=== PATIENT | female | born 1935 | race Caucasian/White ===

== ENCOUNTER 2016-11-14 08:00 | Outpatient (CLI) | payer MEDICARE, OTHER | END 2016-11-14 08:01 | DX: R30.0 Dysuria (principal); R31.9 Hematuria, unspecified ==

== ENCOUNTER 2016-11-21 13:24 | Outpatient (CLI) | payer MEDICARE, OTHER | END 2016-11-21 13:25 | disposition home or self-care (01) | DX: R30.0 Dysuria (principal) ==

== ENCOUNTER 2017-01-07 20:42 | Emergency (ER) | payer MEDICARE, OTHER ==
[2017-01-07 21:50] LABS: BILIRUBIN,URINE NEGATIVE (NEGATIVE); PH,URINE 5.5 PH (5.0-7.5)
[2017-01-07] MEDS ORDERED: LIDOCAINE VISCOUS 2% 15 ML UDC MM STA (21:55)
[2017-01-07] MEDS ORDERED: MAG HYDROX/AL HYDROX/SIMETH 30 ML UDC PO STA (21:55)
[2017-01-07] MEDS ORDERED: FAMOTIDINE 20 MG/2 ML VIAL IVP STA (21:55)
[2017-01-07 21:56] LABS: UA CHARGE (STRIP ONLY) YES; UR CULTURE IF IND NOT INDICATED
[2017-01-07] MEDS ORDERED: LIDOCAINE VISCOUS 2% 15 ML UDC MM ONE (22:09)
[2017-01-07] MEDS ORDERED: FAMOTIDINE 20 MG/2 ML VIAL ONE (22:09)
[2017-01-07] MEDS ORDERED: MAG HYDROX/AL HYDROX/SIMETH 30 ML UDC ONE (22:09)
[2017-01-07 22:20] LABS: BASOPHILS % (AUTO) 0.6 %; EOSINOPHILS # (AUTO) 0.1 10^3/uL (0.0-0.7); EOSINOPHILS % (AUTO) 1.5 %; HCT - HEMATOCRIT 39.9 % (37.0-47.0); LYMPHOCYTES # (AUTO) 1.1 10^3/uL (1.5-3.5); LYMPHOCYTES % (AUTO) 22.5 %; MEAN CORPUSCULAR HEMOGLOBIN 29.9 pg (27.0-31.0); MEAN CORPUSCULAR HGB CONC 32.6 g/dL (32.0-36.0); MEAN CORPUSCULAR VOLUME 91.7 fL (81.0-99.0); MEAN PLATELET VOLUME 9.7 fL (7.9-10.8); MONOCYTES # (AUTO) 0.5 10^3/uL (0.0-1.0); MONOCYTES % (AUTO) 10.1 %; NEUTROPHILS # (AUTO) 3.3 10^3/uL (1.5-6.6); NEUTROPHILS % (AUTO) 65.3 %; RED BLOOD COUNT 4.35 10^6/uL (4.20-5.40); RED CELL DISTRIBUTION WIDTH 16.3 % (12.0-15.0); UNCORRECTED WHITE BLOOD COUNT 5.1 x10^3/uL; WHITE BLOOD COUNT 5.1 x10^3/uL (4.8-10.8)
[2017-01-07 22:31] LABS: ALBUMIN/GLOBULIN RATIO 1.8 (1.0-2.2); BILIRUBIN,TOTAL 0.4 mg/dL (0.2-1.0); CALCIUM 9.1 mg/dL (8.5-10.3); CREATININE 0.9 mg/dL (0.4-1.0); POTASSIUM 3.7 mmol/L (3.5-5.0); TOTAL PROTEIN 6.6 g/dL (6.7-8.2)
[2017-01-07] MEDS ORDERED: IOPAMIDOL-300 100 ML VIAL IVP ONE (23:40)
--- NOTE | 2017-01-08 00:04 | CT Preliminary Report ---
Exam: CT Abdomen/Pelvis W/ IMPRESSION: 1. Appendix is not seen. No definite evidence of appendicitis. 2. No bowel obstruction seen. 3. Nonobstructing 3 mm stone in the right kidney. 4. Status post cholecystectomy with common duct measuring 10 mm and pancreatic duct measuring 3.5 mm. No ductal obstruction is identified. [facility] SITE ID: [id number]
--- NOTE | 2017-01-08 00:06 | CT Report ---
EXAM: CT ABDOMEN AND PELVIS EXAM DATE: 01/07/2017 11:24 PM. CLINICAL HISTORY: Abdominal pain. COMPARISONS: Prior report, 08/02/2014. TECHNIQUE: Routine helical CT imaging was performed through the abdomen and pelvis. IV contrast: Ayaka onic. Enteric contrast: No. Reconstructions: Coronal and sagittal. In accordance with CT protocol optimization, one or more of the following dose reduction techniques w ere utilized for this exam: automated exposure control, adjustment of mA and/or KV based on patient s ize, or use of iterative reconstructive technique. FINDINGS: Lung Bases: Unremarkable. Liver: No focal lesion identified. Gallbladder/Bile Ducts: Status post cholecystectomy. Common duct measures up to 10 mm. Spleen: Normal. Pancreas: Dilated duct measuring up to 3.5 mm. Adrenal Glands: Normal. Kidneys: Nonobstructing 3 mm right renal stone. Small left renal cyst. No masses or hydronephrosis. Peritoneal Cavity/Bowel: No bowel obstruction seen. No diverticulitis. No free air or free fluid. No lymphadenopathy. Appendix is not well seen. No evidence of appendicitis. Pelvic Organs: The uterus is not seen. Visualized pelvic organs are otherwise unremarkable. Vasculature: Moderate atherosclerosis. No aortic aneurysm. Bones: Scoliosis and degenerative changes in the spine. Grade 1 degenerative spondylolisthesis at L4- L5. 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 Other: None. IMPRESSION: 1. Appendix is not seen. No definite evidence of appendicitis. 2. No bowel obstruction seen. 3. Nonobstructing 3 mm stone in the right kidney. 4. Status post cholecystectomy with common duct measuring 10 mm and pancreatic duct measuring 3.5 mm. No ductal obstruction is identified. [facility] Referring Provider Line: [phone] SITE ID: [id number]
--- NOTE | 2017-01-08 00:16 | ED Physician Documentation ---
PD HPI ABD PAIN - Stated complaint Stated Complaint: ABD PX - Chief complaint Chief Complaint: Abd Pain - History obtained from History obtained from: Patient, Family - History of Present Illness Timing - onset: Yesterday Timing - details: Gradual onset, Still present Quality: Sharp Location: Epigastric Improved by: Eating, Laying still Associated symptoms: No: Fever, Nausea, Vomiting, Hematemesis, Diarrhea, Constipation, Near syncope / syncope, Loss of appetite Similar symptoms before: Work up / diagnostics, Treatment Recently seen: Not recently seen - Additional information Additional information: Patient is an 81 year old female presenting to the emergency department for epigastric pain. patient states that it has been going on for the last couple of days. it radiates to her back and feels like it is burning in nature. patient states that it improves with eating. Patient states that in the past she has been diagnosed with gastritis and has had an ulcer in the past. Review of Systems Constitutional: denies: Fever, Chills Eyes: denies: Loss of vision Ears: denies: Ear pain Nose: denies: Rhinorrhea / runny nose, Congestion, Epistaxis Throat: denies: Sore throat Cardiac: denies: Chest pain / pressure, Palpitations Respiratory: denies: Cough, Wheezing GI: reports: Abdominal Pain, Nausea, Diarrhea. denies: Vomiting, Constipation : reports: Incontinent. 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 HEENT: Tonsil/Adenoidectomy - Present Medications Home Medications: Ambulatory Orders Medication Instructions Recorded Confirmed Multivitamin [Daily Multiple 1 tab PO DAILY 04/06/15 01/07/17 Vitamin] raNITIdine [Zantac] 150 mg PO DAILY #30 tablet 01/08/17 - Allergies Allergies/Adverse Reactions: Allergies Allergy/AdvReac Type Severity Reaction Status Date / Time aspirin Allergy Severe throat pain Verified 04/06/15 01:29 - Social History Does the pt smoke?: No Smoking Status: Never smoker Does the pt drink ETOH?: No Does the pt have substance abuse?: No - Immunizations Immunizations are current?: Yes - POLST Patient has POLST: No PD ED PE NORMAL - Vitals Vital signs reviewed: Yes - General General: Alert and oriented X 3, No acute distress, Well developed/nourished - HEENT HEENT: Atraumatic, PERRL - Neck Neck: Supple, no meningeal sign, No JVD - Cardiac Cardiac: RRR, No murmur - Respiratory Respiratory: No respiratory distress - Derm Derm: Normal color, Warm and dry, No rash - Extremities Extremities: No deformity, No edema - Psych Psych: Normal mood, Normal affect PD ED PE EXPANDED - Abdomen Abdomen: Tender to palpation, Epigastric. No: Rebound, Guarding Results - Vitals Vitals: Vital Signs - 24 hr 01/07/17 01/07/17 01/08/17 20:47 22:46 00:29 Temperature 36.3 C L Heart Rate 70 96 65 Respiratory 18 18 18 Rate Blood Pressure 161/76 H 166/76 H 119/85 H O2 Saturation 99 96 97 Oxygen O2 Source Room air - Labs Labs: Laboratory Tests 01/07/17 01/07/17 01/07/17 21:38 22:08 22:08 WBC 5.1 RBC 4.35 Hgb 13.0 Hct 39.9 MCV 91.7 MCH 29.9 MCHC 32.6 RDW 16.3 H Plt Count 153 MPV 9.7 Neut # 3.3 Lymph # 1.1 L [place] # 0.5 Eos # 0.1 Baso # 0.0 Absolute Nucleated RBC 0.00 Nucleated RBCs 0.0 Sodium 140 Potassium 3.7 Chloride 107 Carbon Dioxide 24 Anion Gap 9.0 BUN 24 H Creatinine 0.9 Estimated GFR (MDRD) 60 L Glucose 117 H Lactic Acid Calcium 9.1 Total Bilirubin 0.4 AST 20 ALT 20 Alkaline Phosphatase 40 L Lactate Dehydrogenase Total Protein 6.6 L Albumin 4.2 Globulin 2.4 Albumin/Globulin Ratio 1.8 Lipase 33 Urine Color YELLOW Urine Clarity CLEAR Urine pH 5.5 Ur Specific [place] <=1.005 Urine Protein NEGATIVE Urine Glucose (UA) NEGATIVE Urine Ketones NEGATIVE Urine Occult Blood TRACE-INTA Urine Nitrite NEGATIVE Urine Bilirubin NEGATIVE Urine Urobilinogen 0.2 (NORMAL) Ur Leukocyte Esterase NEGATIVE Ur Microscopic Review NOT INDICATED Urine Culture Comments NOT INDICATED 01/07/17 01/07/17 22:08 22:08 WBC RBC Hgb Hct MCV MCH MCHC RDW Plt Count MPV Neut # Lymph # [place] # Eos # Baso # Absolute Nucleated RBC Nucleated RBCs Sodium Potassium Chloride Carbon Dioxide Anion Gap BUN Creatinine Estimated GFR (MDRD) Glucose Lactic Acid 0.7 Calcium Total Bilirubin AST ALT Alkaline Phosphatase Lactate Dehydrogenase 162 Total Protein Albumin Globulin Albumin/Globulin Ratio Lipase Urine Color Urine Clarity Urine pH Ur Specific [place] Urine Protein Urine Glucose (UA) Urine Ketones Urine Occult Blood Urine Nitrite Urine Bilirubin Urine Urobilinogen Ur Leukocyte Esterase Ur Microscopic Review Urine Culture Comments - Rads (name of study) ct abdomen and pelvis Radiology: Final report received (no obstruction) PD MEDICAL DECISION MAKING - ED course Complexity details: reviewed old records, reviewed results, re-evaluated patient , considered differential, d/w patient, d/w family ED course: Patient was seen and exained at bedside. patient was in no acute distress. labs were drawn and urine was collected. Patient was treated with viscous lidocaine, maalox, pepcid and was able to eat. patient stated that the treatment did help with her pain but it still persisted. CT was ordered. When patient returned from imaging the results were reviewed. there was no major intrabdominal abnormality. patient required no further work up and was stable for discharge with outpatient follow up. Departure - Departure Disposition: 01 Home, Self Care Clinical Impression: Abdominal pain Condition: Good Instructions: ED Abdominal Pain Unkn Cause Follow-Up: Za Matson PA-C [Primary Care Provider] - Tomorrow Prescriptions: raNITIdine [Zantac] 150 mg PO DAILY #30 tablet Comments: Your diagnostics today were within normal limits. there was no sign of infection, obstruction or fluid collection. While it is difficult to say what is causing the pain exactly, it is unlikely to be of serious etiology. You should follow up with your doctor tomorrow and the next step would possibly be endoscopy. You will be started on an antacid that you will need to take daily. You may return to the emergency department at any time for new, worsening or uncontrollable symptoms. Discharge Date/Time: 01/08/17 00:29
[2017-01-08 00:30] VITALS: BP 119/85
== END 2017-01-08 00:29 | disposition home or self-care (01) ==
LOC: ED 20:42
DX: R10.13 Epigastric pain (principal); R19.7 Diarrhea, unspecified; R11.0 Nausea
CPT/HCPCS: 36415; 74177; 80053; 81003; 83605; 83615; 83690; 85025; 96374; 99283; 99284; A9270; Q9967; 81001; 87086

== ENCOUNTER 2017-08-24 08:00 | Outpatient (CLI) | payer MEDICARE, OTHER ==
[2017-08-24 17:46] LABS: BASOPHILS # (AUTO) 0.1 10^3/uL (0.0-0.1); BASOPHILS % (AUTO) 1.9 %; EOSINOPHILS # (AUTO) 0.1 10^3/uL (0.0-0.7); EOSINOPHILS % (AUTO) 1.5 %; HGB - HEMOGLOBIN 13.5 g/dL (12.0-16.0); LYMPHOCYTES # (AUTO) 1.1 10^3/uL (1.5-3.5); LYMPHOCYTES % (AUTO) 15.3 %; MEAN CORPUSCULAR HEMOGLOBIN 29.3 pg (27.0-31.0); MEAN CORPUSCULAR HGB CONC 32.6 g/dL (32.0-36.0); MEAN CORPUSCULAR VOLUME 89.9 fL (81.0-99.0); MEAN PLATELET VOLUME 8.8 fL (7.9-10.8); MONOCYTES # (AUTO) 0.7 10^3/uL (0.0-1.0); MONOCYTES % (AUTO) 9.9 %; NEUTROPHILS # (AUTO) 5.3 10^3/uL (1.5-6.6); NEUTROPHILS % (AUTO) 71.4 %; PLT - PLATELET COUNT 253 10^3/uL (130-450); RED BLOOD COUNT 4.62 10^6/uL (4.20-5.40); RED CELL DISTRIBUTION WIDTH 15.1 % (12.0-15.0); WHITE BLOOD COUNT 7.5 x10^3/uL (4.8-10.8)
[2017-08-24 18:22] LABS: BILIRUBIN,URINE NEGATIVE (NEGATIVE); GLUCOSE, URINE (UA) NEGATIVE (NEGATIVE); KETONES,URINE (UA) NEGATIVE (NEGATIVE); LEUKOCYTE ESTERASE, URINE NEGATIVE (NEGATIVE); NITRITE,URINE NEGATIVE (NEGATIVE); OCCULT BLOOD,URINE NEGATIVE (NEGATIVE); PROTEIN,URINE NEGATIVE (NEGATIVE); UROBILINOGEN,URINE 0.2 (NORMAL) E.U./dL (NORMAL)
[2017-08-24 18:34] LABS: ALBUMIN 3.9 g/dL (3.2-5.5); ALBUMIN/GLOBULIN RATIO 1.4 (1.0-2.2); ALKALINE PHOSPHATASE 82 IU/L (42-121); ALT ALANINE AMINOTRANSFERASE 22 IU/L (10-60); AST ASPARTATE AMINOTRANSFERASE 18 IU/L (10-42); BILIRUBIN,TOTAL 0.5 mg/dL (0.2-1.0); BUN - BLOOD UREA NITROGEN 35 mg/dL (6-20); CARBON DIOXIDE - CO2 25 mmol/L (21-32); CHLORIDE 104 mmol/L (101-111); CREATININE 1.1 mg/dL (0.4-1.0); GFR - MDRD 48 (>89); GLUCOSE 90 mg/dL (70-100); SODIUM 138 mmol/L (135-145); TOTAL PROTEIN 6.6 g/dL (6.7-8.2)
[2017-08-24 18:40] LABS: CREATININE,URINE 83.1 mg/dL; MICROALBUM/CREATININE RATIO,UR 3.6 ug/mg (<30.0); MICROALBUMIN,URINE 0.3 mg/dL (0-300.0)
[2017-08-24 18:41] LABS: BACTERIA,URINE Rare /HPF (None Seen); CLARITY,URINE CLEAR (CLEAR); RBC,URINE 0-5 /HPF (0-5); SQUAMOUS EPITHELIAL CELL,UR FEW Squamous (<= Few)
[2017-08-24 18:54] LABS: HB2 TOTAL 14.5 g/dL; HEMOGLOBIN A1C 0.6 g/dL; HEMOGLOBIN A1C % 5.9 % (4.6-6.2)
== END 2017-08-24 08:01 | disposition home or self-care (01) ==
LOC: LAB.F 08:00
PROVIDERS: ATTEND Physician Assistant Medical
DX: N18.3 Chronic kidney disease, stage 3 (moderate) (principal); E11.22 Type 2 diabetes mellitus with diabetic chronic kidney disease; J06.9 Acute upper respiratory infection, unspecified; Z51.81 Encounter for therapeutic drug level monitoring
CPT/HCPCS: 36415; 80053; 81001; 82043; 82570; 83036; 84443; 85025; 87086

== ENCOUNTER 2017-12-23 08:00 | Outpatient (CLI) | payer MEDICARE, OTHER ==
[2017-12-23 17:42] LABS: BILIRUBIN,URINE NEGATIVE (NEGATIVE); GLUCOSE, URINE (UA) NEGATIVE (NEGATIVE); KETONES,URINE (UA) NEGATIVE (NEGATIVE); LEUKOCYTE ESTERASE, URINE NEGATIVE (NEGATIVE); NITRITE,URINE NEGATIVE (NEGATIVE); OCCULT BLOOD,URINE NEGATIVE (NEGATIVE); PROTEIN,URINE NEGATIVE (NEGATIVE); UROBILINOGEN,URINE 0.2 (NORMAL) E.U./dL (NORMAL)
[2017-12-23 17:48] LABS: CLARITY,URINE CLEAR (CLEAR)
[2017-12-23 17:58] LABS: BACTERIA,URINE None Seen /HPF (None Seen); RBC,URINE None Seen /HPF (0-5); SQUAMOUS EPITHELIAL CELL,UR RARE Squamous (<= Few)
== END 2017-12-23 08:01 | disposition home or self-care (01) ==
LOC: LAB.F 08:00
PROVIDERS: ATTEND Physician Assistant Medical
DX: R30.0 Dysuria (principal)
CPT/HCPCS: 81001; 87086

== ENCOUNTER 2018-01-22 14:49 | Outpatient (CLI) | payer MEDICARE, OTHER ==
[2018-01-22 18:32] LABS: THYROID STIMULATING HORMONE 0.8 uIU/mL (0.34-5.60)
[2018-01-22 18:39] LABS: FERRITIN 116.3 ng/mL (11.0-306.8)
== END 2018-01-22 14:50 | disposition home or self-care (01) ==
LOC: LAB.F 14:49
PROVIDERS: ATTEND Physician Assistant Medical
DX: R41.3 Other amnesia (principal); R63.4 Abnormal weight loss; R03.0 Elevated blood-pressure reading, without diagnosis of hypertension; N18.3 Chronic kidney disease, stage 3 (moderate)
CPT/HCPCS: 36415; 82607; 82728; 82746; 84439; 84443; 84481

== ENCOUNTER 2018-04-07 13:12 | Outpatient (CLI) | payer MEDICARE, OTHER ==
--- NOTE | 2018-04-07 15:44 | XRAY Report ---
Reason: ACUTE LOW BACK PAIN Procedure Date: 04/07/2018 Accession Number: [id number] / [id number] Procedure: XR - Hip w/Pelvis 2-3V LT CPT Code: FULL RESULT: EXAM: LEFT HIP AND PELVIS RADIOGRAPHY EXAM DATE: 04/07/2018 02:12 PM. HISTORY: Acute low back pain. COMPARISONS: 04/06/2015. TECHNIQUE: 1 view of the pelvis and 1 view of the hip. FINDINGS: Bones: Normal. No fracture or bone lesion. 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 Sacroiliac joints are congruent. Soft Tissues: Normal. No soft tissue swelling. IMPRESSION: Moderate degenerative disease of both hips. [facility]
--- NOTE | 2018-04-07 15:44 | XRAY Report ---
Reason: ACUTE LOW BACK PAIN Procedure Date: 04/07/2018 Accession Number: [id number] / [id number] Procedure: XR - Lumbar Spine 2 View CPT Code: FULL RESULT: EXAM: LUMBOSACRAL SPINE RADIOGRAPHY. EXAM DATE: 04/07/2018 02:12 PM. CLINICAL HISTORY: Acute low back pain. COMPARISONS: CT abdomen and pelvis 01/07/2017. TECHNIQUE: 3 views. FINDINGS: Alignment: Dextroconvex lumbar scoliosis centered about L1-L2, unchanged. Bones: 6 paw-aeb-lddzqos lumbar vertebral bodies are present with a vestigial left-sided riblet on L1. No fractures or bone lesions. Disks: Mild to moderate degenerative disk disease which is most pronounced at L3-L5. Facets: Severe facet arthropathy of the lower 4 lumbar vertebral bodies. Sacroiliac Joints: Unremarkable. Soft Tissues: Normal. The visualized bowel gas pattern is normal. IMPRESSION: Six lumbar vertebral bodies with dextroconvex scoliosis and associated degenerative changes. [facility]
== END 2018-04-07 13:13 | disposition home or self-care (01) ==
LOC: DI 13:12
PROVIDERS: ATTEND Internal Medicine
DX: M54.5 Low back pain (principal)
CPT/HCPCS: 72100

== ENCOUNTER 2018-07-14 12:11 | Outpatient (CLI) | payer MEDICARE, OTHER ==
[2018-07-14 17:28] LABS: BILIRUBIN,URINE NEGATIVE (NEGATIVE); GLUCOSE, URINE (UA) NEGATIVE (NEGATIVE); KETONES,URINE (UA) NEGATIVE (NEGATIVE); LEUKOCYTE ESTERASE, URINE NEGATIVE (NEGATIVE); NITRITE,URINE NEGATIVE (NEGATIVE); OCCULT BLOOD,URINE NEGATIVE (NEGATIVE); PH,URINE 6.5 PH (5.0-7.5); PROTEIN,URINE NEGATIVE (NEGATIVE); UROBILINOGEN,URINE 0.2 (NORMAL) E.U./dL (NORMAL)
[2018-07-14 17:39] LABS: CLARITY,URINE CLEAR (CLEAR)
[2018-07-14 17:50] LABS: CALCIUM 9.2 mg/dL (8.5-10.3); CREATININE 0.7 mg/dL (0.4-1.0)
[2018-07-14 18:02] LABS: BACTERIA,URINE None Seen /HPF (None Seen); RBC,URINE None Seen /HPF (0-5); SQUAMOUS EPITHELIAL CELL,UR RARE Squamous (<= Few)
[2018-07-14 20:36] LABS: HB2 TOTAL 14.7 g/dL; HEMOGLOBIN A1C 0.59 g/dL; HEMOGLOBIN A1C % 5.8 % (4.6-6.2)
== END 2018-07-14 23:59 | disposition home or self-care (01) ==
LOC: LAB.F 12:11
PROVIDERS: ATTEND Physician Assistant Medical
DX: R30.0 Dysuria (principal); A60.00 Herpesviral infection of urogenital system, unspecified; E11.9 Type 2 diabetes mellitus without complications
CPT/HCPCS: 36415; 80048; 81001; 82043; 83036; 87086

== ENCOUNTER 2018-09-08 14:53 | Outpatient (CLI) | payer MEDICARE, OTHER ==
[2018-09-08 18:22] LABS: ALBUMIN 3.8 g/dL (3.2-5.5); ALBUMIN/GLOBULIN RATIO 1.6 (1.0-2.2); BILIRUBIN,TOTAL 0.5 mg/dL (0.2-1.0); CALCIUM 9.3 mg/dL (8.5-10.3); CREATININE 0.7 mg/dL (0.4-1.0); TOTAL PROTEIN 6.2 g/dL (6.7-8.2)
== END 2018-09-08 14:54 | disposition home or self-care (01) ==
LOC: LAB.F 14:53
PROVIDERS: ATTEND Physician Assistant Medical
DX: R10.13 Epigastric pain (principal)
CPT/HCPCS: 36415; 80053; 82150; 83690

== ENCOUNTER 2018-09-08 22:42 | Outpatient (CLI) | payer MEDICARE, OTHER ==
--- NOTE | 2018-09-09 00:52 | Ultrasound Report ---
Reason: EPIGASTRIC PAIN Procedure Date: 09/09/2018 Accession Number: [id number] / [id number] Procedure: US - Abdomen Limited CPT Code: FULL RESULT: EXAM: ABDOMEN ULTRASOUND LIMITED, RUQ EXAM DATE: 09/09/2018 12:05 AM. CLINICAL HISTORY: EPIGASTRIC PAIN. COMPARISON: 09/30/2010. TECHNIQUE: Real-time scanning was performed with static images obtained. FINDINGS: Liver: Possible subtle echogenic focus in the left lobe measuring 7 x 6 x 6 mm. Mildly heterogeneous echotexture. 13.4 cm. Main portal vein flow: Hepatopetal. Gallbladder: Surgically absent. Biliary System: CBD measures 9.8 mm. No obvious common duct stone identified. Other: Right kidney measures 8.9 cm. Mild hydronephrosis. Small nonshadowing echogenic focus in the cortex. Inferior vena cava is patent where seen. IMPRESSION: 1. Status post cholecystectomy with common duct measuring 9.8 mm, probably normal for age and postcholecystectomy. 2. Possible subcentimeter hemangioma in the left liver lobe. 3. Mild right hydronephrosis. Possible small nonshadowing nonobstructing stone in the kidney. [facility] The call report notification system was initiated by Dr. Garrett Boyce at 12:51 AM hrs on 09/09/2018. ADDENDUM: 09/09/18 02:02 The above findings were discussed with Dr. Ureña by Dr. Garrett Boyce at 02:02 AM hrs on 09/09/2018.
== END 2018-09-08 22:43 | disposition home or self-care (01) ==
LOC: DI 22:42
PROVIDERS: ATTEND Physician Assistant Medical
DX: N13.30 Unspecified hydronephrosis (principal); Z90.49 Acquired absence of other specified parts of digestive tract; R10.13 Epigastric pain
CPT/HCPCS: 36415; 76705; 80053; 82150; 83690

== ENCOUNTER 2018-10-22 12:43 | Outpatient (CLI) | payer MEDICARE, OTHER ==
[2018-10-22 18:10] LABS: BASOPHILS % (AUTO) 0.9 %; EOSINOPHILS # (AUTO) 0.1 10^3/uL (0.0-0.7); EOSINOPHILS % (AUTO) 1.6 %; HGB - HEMOGLOBIN 13.1 g/dL (12.0-16.0); LYMPHOCYTES # (AUTO) 0.8 10^3/uL (1.5-3.5); LYMPHOCYTES % (AUTO) 22.7 %; MEAN CORPUSCULAR HGB CONC 33.6 g/dL (32.0-36.0); MEAN CORPUSCULAR VOLUME 89.5 fL (81.0-99.0); MEAN PLATELET VOLUME 9.6 fL (7.9-10.8); MONOCYTES # (AUTO) 0.4 10^3/uL (0.0-1.0); MONOCYTES % (AUTO) 11.9 %; NEUTROPHILS # (AUTO) 2.2 10^3/uL (1.5-6.6); NEUTROPHILS % (AUTO) 62.9 %; PLT - PLATELET COUNT 158 10^3/uL (130-450); RED BLOOD COUNT 4.35 10^6/uL (4.20-5.40); RED CELL DISTRIBUTION WIDTH 14.6 % (12.0-15.0); WHITE BLOOD COUNT 3.5 x10^3/uL (4.8-10.8)
[2018-10-22 18:11] LABS: BILIRUBIN,URINE NEGATIVE (NEGATIVE); GLUCOSE, URINE (UA) NEGATIVE (NEGATIVE); KETONES,URINE (UA) NEGATIVE (NEGATIVE); LEUKOCYTE ESTERASE, URINE NEGATIVE (NEGATIVE); NITRITE,URINE NEGATIVE (NEGATIVE); OCCULT BLOOD,URINE NEGATIVE (NEGATIVE); PROTEIN,URINE NEGATIVE (NEGATIVE); UROBILINOGEN,URINE 0.2 (NORMAL) E.U./dL (NORMAL)
[2018-10-22 18:15] LABS: CLARITY,URINE CLEAR (CLEAR)
[2018-10-22 18:31] LABS: ALBUMIN 3.9 g/dL (3.2-5.5); BACTERIA,URINE None Seen /HPF (None Seen); CALCIUM 9.5 mg/dL (8.5-10.3); CREATININE 0.7 mg/dL (0.4-1.0); MAGNESIUM 2.4 mg/dL (1.7-2.8); PHOSPHORUS 3.8 mg/dL (2.5-4.6); RBC,URINE None Seen /HPF (0-5); SQUAMOUS EPITHELIAL CELL,UR NONE SEEN (<= Few)
[2018-10-22 18:48] LABS: HB2 TOTAL 13.7 g/dL; HEMOGLOBIN A1C 0.58 g/dL
[2018-10-22 21:23] LABS: CREATININE,URINE 85.7 mg/dL; PROTEIN/CREATININE RATIO,URINE 0.1 (<=0.2)
== END 2018-10-22 12:44 | disposition home or self-care (01) ==
LOC: LAB.F 12:43
PROVIDERS: ATTEND Internal Medicine Nephrology
DX: E74.39 Other disorders of intestinal carbohydrate absorption (principal); N18.2 Chronic kidney disease, stage 2 (mild); D64.9 Anemia, unspecified
CPT/HCPCS: 36415; 80069; 81001; 81599; 82570; 83036; 83735; 83970; 84156; 85025

== ENCOUNTER 2018-12-05 11:44 | Outpatient (CLI) | payer MEDICARE, OTHER | END 2018-12-05 11:45 | disposition critical access hospital (66) | LOC: EMS 11:44 | PROVIDERS: ATTEND Surgery | DX: R20.2 Paresthesia of skin (principal); R20.0 Anesthesia of skin; R53.81 Other malaise | CPT/HCPCS: A0425; A0427 ==

== ENCOUNTER 2018-12-05 12:30 | Emergency (ER) | payer MEDICARE, OTHER ==
--- NOTE | 2018-12-05 13:22 | ED Physician Documentation ---
History of Present Illness - Stated complaint Stated Complaint: AFIB - Chief complaint Chief Complaint: UTI - History obtained from History obtained from: Patient, Family - History of Present Illness Timing: Today - Additonal information Additional information: 82-year-old female has had some intermittent symptoms over the past several weeks of vague left-sided tingling. Today she did not feel well and [facility] which [facility] right next to her home and they were able to capture atrial fibrillation with rate of 140. They transported the patient to the hospital and in route she went down to a rate of 90. She arrives to the emergency department in atrial fibrillation with a rate of 90. Review of Systems Constitutional: reports: Fatigue. denies: Fever, Chills, Myalgias Eyes: denies: Decreased vision Ears: denies: Ear pain Nose: denies: Rhinorrhea / runny nose, Congestion Throat: denies: Sore throat Cardiac: denies: Chest pain / pressure, Palpitations Respiratory: denies: Dyspnea, Cough GI: denies: Abdominal Pain, Nausea, Constipation, Diarrhea : denies: Dysuria, Frequency Skin: denies: Rash Musculoskeletal: reports: Other (odd sensations to the left side.). 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 HEENT: Tonsil/Adenoidectomy - Allergies Allergies/Adverse Reactions: Allergies Allergy/AdvReac Type Severity Reaction Status Date / Time aspirin Allergy Severe throat pain Verified 04/06/15 01:29 - Social History Does the pt smoke?: No Smoking Status: Never smoker Does the pt drink ETOH?: No Does the pt have substance abuse?: No - Immunizations Immunizations are current?: Yes - POLST Patient has POLST: No PD ED PE NORMAL - Vitals Vital signs reviewed: Yes (tachy and hypertensive ) - General General: Alert and oriented X 3, No acute distress, Well developed/nourished - HEENT HEENT: Atraumatic, PERRL, EOMI, Ears normal - Neck Neck: Supple, no meningeal sign, No bony TTP - Cardiac Cardiac: RRR, No murmur - Respiratory Respiratory: No respiratory distress, Clear bilaterally - Abdomen Abdomen: Soft, Non tender - Back Back: No CVA TTP, No spinal TTP - Derm Derm: Normal color, Warm and dry, No rash - Extremities Extremities: No deformity, No edema - Neuro Neuro: Alert and oriented X 3, 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, No motor deficit, No sensory deficit, Normal speech Eye Opening: Spontaneous Motor: Obeys Commands Verbal: Oriented GCS Score: 15 - Psych Psych: Normal mood, Normal affect Results - Vitals Vitals: Vital Signs - 24 hr 12/05/18 12/05/18 12/05/18 12:30 12:46 13:31 Temperature 36.8 C Heart Rate 115 H 76 Respiratory 18 18 Rate Blood Pressure 154/91 H 146/74 H Blood Pressure 154/91 H [Left] O2 Saturation 94 95 12/05/18 12/05/18 14:02 14:31 Temperature Heart Rate 70 71 Respiratory 16 12 Rate Blood Pressure 140/74 H 140/74 H Blood Pressure [Left] O2 Saturation 96 98 Oxygen O2 Source Room air - EKG (time done) 1240 Rate: Rate (enter#) (99) Rhythm: Atrial fibrillation Ischemia: Normal ST segments Compare to prior EKG: Old EKG unavailable Computer interpretation: Agree with computer 1334 Rate: Rate (enter#) (69) Rhythm: NSR, LISSETTE [place]: LAD Compare to prior EKG: Changed from prior EKG (SPT earlier today the rate has slowed and the rhythm has changed to sinus. ) Computer interpretation: Agree with computer - Labs Labs: Laboratory Tests 12/05/18 12/05/18 12/05/18 13:30 13:34 13:34 WBC 5.8 RBC 5.13 Hgb 14.9 Hct 45.8 MCV 89.2 MCH 29.0 MCHC 32.5 RDW 15.1 H Plt Count 167 MPV 9.6 Neut # (Auto) 3.9 Lymph # (Auto) 1.2 L [place] # (Auto) 0.6 Eos # (Auto) 0.1 Baso # (Auto) 0.0 Absolute Nucleated RBC 0.00 Nucleated RBC % 0.0 Sodium 139 Potassium 3.8 Chloride 103 Carbon Dioxide 26 Anion Gap 10.0 BUN 28 H Creatinine 0.8 Estimated GFR (MDRD) 69 L Glucose 108 H Calcium 9.7 Total Bilirubin 0.7 AST 21 ALT 18 Alkaline Phosphatase 54 Troponin I Total Protein 6.9 Albumin 4.0 Globulin 2.9 Albumin/Globulin Ratio 1.4 Lipase 37 Urine Color YELLOW Urine Clarity SL. CLOUDY Urine pH 8.0 H Ur Specific [place] 1.015 Urine Protein NEGATIVE Urine Glucose (UA) NEGATIVE Urine Ketones TRACE Urine Occult Blood NEGATIVE Urine Nitrite NEGATIVE Urine Bilirubin NEGATIVE Urine Urobilinogen 0.2 (NORMAL) Ur Leukocyte Esterase NEGATIVE Urine RBC 0-5 Urine WBC 0-3 Ur Squamous Epith Cells FEW Squamous Amorphous Sediment Few Urine Bacteria Few Ur Microscopic Review INDICATED Urine Culture Comments NOT INDICATED 12/05/18 13:34 WBC RBC Hgb Hct MCV MCH MCHC RDW Plt Count MPV Neut # (Auto) Lymph # (Auto) [place] # (Auto) Eos # (Auto) Baso # (Auto) Absolute Nucleated RBC Nucleated RBC % Sodium Potassium Chloride Carbon Dioxide Anion Gap BUN Creatinine Estimated GFR (MDRD) Glucose Calcium Total Bilirubin AST ALT Alkaline Phosphatase Troponin I < 0.04 Total Protein Albumin Globulin Albumin/Globulin Ratio Lipase Urine Color Urine Clarity Urine pH Ur Specific [place] Urine Protein Urine Glucose (UA) Urine Ketones Urine Occult Blood Urine Nitrite Urine Bilirubin Urine Urobilinogen Ur Leukocyte Esterase Urine RBC Urine WBC Ur Squamous Epith Cells Amorphous Sediment Urine Bacteria Ur Microscopic Review Urine Culture Comments - Rads (name of study) CT head without Radiology: Prelim report reviewed (Impression: 1. No definite acute intracranial abnormality. 2 Mild chronic atrophic and probable microvascular ischemic changes as noted above.), EMP read indepedently, See rad report PD MEDICAL DECISION MAKING - ED course Complexity details: considered differential, d/w patient, d/w family ED course: 82-year-old female presents to the emergency department with atrial fibrillation she was seen at the medics station noted to be in A. fib with a rate of 140 and she went down to a rate of 90 when they attempted to start her IV. On my initial evaluation the patient is in atrial fibrillation and when she sits up for examination of her lungs she converts into a sinus rhythm with rate of 72. She has some complaints of odd sensations in the left side she is very nondescript about this and unable to fully elaborate. She does indicate that she fell and hit her head hard about 2 and [address] weeks ago. A CT of the head is without evidence of bleed and she is released to home. The patient's symptoms are vague and I suspect she may be having symptoms of intermittent atrial fibrillation I have asked the patient to obtain a fit bit to wear for interrogation by her doctor in follow-up. Departure - Departure Disposition: Home, Self Care Clinical Impression: Atrial fibrillation Condition: Stable Instructions: ED Afib Follow-Up: Za Matson PA-C [Primary Care Provider] - Comments: Today it appears you are in atrial fibrillation and you have now converted back into a sinus rhythm. Your symptoms are concerning for intermittent atrial fibrillation and my recommendation is to obtain a fit bit and wear it regularly and bring it to your doctor for interrogation. Discharge Date/Time: 12/05/18 14:48
[2018-12-05 13:40] LABS: BILIRUBIN,URINE NEGATIVE (NEGATIVE); GLUCOSE, URINE (UA) NEGATIVE (NEGATIVE); KETONES,URINE (UA) TRACE mg/dL (NEGATIVE); LEUKOCYTE ESTERASE, URINE NEGATIVE (NEGATIVE); NITRITE,URINE NEGATIVE (NEGATIVE); OCCULT BLOOD,URINE NEGATIVE (NEGATIVE); PROTEIN,URINE NEGATIVE (NEGATIVE); UROBILINOGEN,URINE 0.2 (NORMAL) E.U./dL (NORMAL)
[2018-12-05 13:41] LABS: CLARITY,URINE SL. CLOUDY (CLEAR)
[2018-12-05 13:46] LABS: AMORPHOUS SEDIMENT,UR Few /LPF; BACTERIA,URINE Few /HPF (None Seen); RBC,URINE 0-5 /HPF (0-5); SQUAMOUS EPITHELIAL CELL,UR FEW Squamous (<= Few)
[2018-12-05 13:54] LABS: BASOPHILS % (AUTO) 0.8 %; EOSINOPHILS # (AUTO) 0.1 10^3/uL (0.0-0.7); EOSINOPHILS % (AUTO) 1.3 %; HGB - HEMOGLOBIN 14.9 g/dL (12.0-16.0); LYMPHOCYTES # (AUTO) 1.2 10^3/uL (1.5-3.5); LYMPHOCYTES % (AUTO) 21.1 %; MEAN CORPUSCULAR HGB CONC 32.5 g/dL (32.0-36.0); MEAN CORPUSCULAR VOLUME 89.2 fL (81.0-99.0); MEAN PLATELET VOLUME 9.6 fL (7.9-10.8); MONOCYTES # (AUTO) 0.6 10^3/uL (0.0-1.0); MONOCYTES % (AUTO) 9.6 %; NEUTROPHILS # (AUTO) 3.9 10^3/uL (1.5-6.6); NEUTROPHILS % (AUTO) 67.2 %; PLT - PLATELET COUNT 167 10^3/uL (130-450); RED BLOOD COUNT 5.13 10^6/uL (4.20-5.40); RED CELL DISTRIBUTION WIDTH 15.1 % (12.0-15.0); WHITE BLOOD COUNT 5.8 x10^3/uL (4.8-10.8)
[2018-12-05 14:03] VITALS: BP 140/74
[2018-12-05 14:08] LABS: ALBUMIN/GLOBULIN RATIO 1.4 (1.0-2.2); BILIRUBIN,TOTAL 0.7 mg/dL (0.2-1.0); CALCIUM 9.7 mg/dL (8.5-10.3); CREATININE 0.8 mg/dL (0.4-1.0); TOTAL PROTEIN 6.9 g/dL (6.7-8.2)
--- NOTE | 2018-12-05 14:10 | CT Report ---
Reason: head injury left sided symptoms Procedure Date: 12/05/2018 Accession Number: [id number] / [id number] Procedure: CT - HEAD WO CPT Code: FULL RESULT: EXAM: CT HEAD EXAM DATE: 12/05/2018 01:55 PM. CLINICAL HISTORY: Head injury left sided symptoms. COMPARISON: None. TECHNIQUE: Multiaxial CT images were obtained from the foramen magnum to the vertex. Reformats: Sagittal and coronal. IV contrast: None. In accordance with CT protocol optimization, one or more of the following dose reduction techniques were utilized for this exam: automated exposure control, adjustment of mA and/or KV based on patient size, or use of iterative reconstructive technique. FINDINGS: Parenchyma: No intraparenchymal hemorrhage. No evidence of mass, midline shift, or CT findings of infarction. Cam[place]-white differentiation is distinct. Mild patchy white matter hypodensity in the periventricular white matter and centrum semiovale suggesting chronic microvascular ischemic change. Extraaxial Spaces: Normal for age. No subdural or epidural collections identified. Ventricles: Normal in size and position accounting for mild generalized cerebral and cerebellar volume loss. Sinuses and Orbits: Imaged paranasal sinuses, orbits, and mastoids show no significant abnormality. Bones: No evidence of fracture or calvarial defect. Other: None. IMPRESSION: 1. No definite acute intracranial abnormality. 2. Mild chronic atrophic and probable microvascular ischemic changes as noted above. [facility]
== END 2018-12-05 14:48 | disposition home or self-care (01) ==
LOC: EDUNIT# → ED 12:30
DX: I48.91 Unspecified atrial fibrillation (principal)
CPT/HCPCS: 36415; 70450; 80053; 81001; 81003; 83690; 84484; 85025; 87086; 93005; 99284

== ENCOUNTER 2018-12-07 17:15 | Outpatient (CLI) | payer MEDICARE, OTHER | END 2018-12-07 17:16 | disposition short-term general hospital (02) | LOC: EMS 17:15 | PROVIDERS: ATTEND Surgery | DX: R20.0 Anesthesia of skin (principal); R53.1 Weakness; R53.83 Other fatigue | CPT/HCPCS: A0425; A0427 ==

== ENCOUNTER 2019-01-04 08:31 | Outpatient (CLI) | payer MEDICARE, OTHER ==
[2019-01-04 12:34] LABS: THYROID STIMULATING HORMONE 0.89 uIU/mL (0.34-5.60)
[2019-01-04 12:36] LABS: FREE T4 (FREE THYROXINE) 1.03 ng/dL (0.58-1.64)
== END 2019-01-04 08:32 | disposition home or self-care (01) ==
LOC: LAB.F 08:31
PROVIDERS: ATTEND Physician Assistant Medical
DX: R53.83 Other fatigue (principal); I48.91 Unspecified atrial fibrillation
CPT/HCPCS: 36415; 84439; 84443; 84481; 86376; 86800

== ENCOUNTER 2019-06-07 13:29 | Outpatient (CLI) | payer MEDICARE, OTHER ==
[2019-06-09 16:11] LABS: 18 KD (IGG) BAND NON-REACTIVE; 23 KD (IGG) BAND NON-REACTIVE; 23 KD (IGM) BLOT NON-REACTIVE; 28 KD (IGG) BAND NON-REACTIVE; 30 KD (IGG) BAND NON-REACTIVE; 39 KD (IGG) BAND NON-REACTIVE; 39 KD (IGM) BLOT NON-REACTIVE; 41 KD (IGG) BAND NON-REACTIVE; 41 KD (IGM) BLOT NON-REACTIVE; 45 KD (IGG) BAND NON-REACTIVE; 58 KD (IGG) BAND NON-REACTIVE; 66 KD (IGG) BAND NON-REACTIVE; 93 KD (IGG) BAND NON-REACTIVE
== END 2019-06-07 13:30 | disposition home or self-care (01) ==
LOC: LAB.S 13:29
PROVIDERS: ATTEND Physician Assistant Medical
DX: M25.50 Pain in unspecified joint (principal); R61 Generalized hyperhidrosis; R53.83 Other fatigue
CPT/HCPCS: 36415; 86617

== ENCOUNTER 2019-07-25 11:12 | Outpatient (CLI) | payer MEDICARE, OTHER ==
[2019-07-25 17:14] LABS: BASOPHILS % (AUTO) 0.6 %; EOSINOPHILS # (AUTO) 0.2 10^3/uL (0.0-0.7); EOSINOPHILS % (AUTO) 3.2 %; HGB - HEMOGLOBIN 12.9 g/dL (12.0-16.0); LYMPHOCYTES # (AUTO) 1.3 10^3/uL (1.5-3.5); LYMPHOCYTES % (AUTO) 26.9 %; MEAN CORPUSCULAR HEMOGLOBIN 30.1 pg (27.0-31.0); MEAN CORPUSCULAR HGB CONC 32.2 g/dL (32.0-36.0); MEAN CORPUSCULAR VOLUME 93.5 fL (81.0-99.0); MONOCYTES # (AUTO) 0.5 10^3/uL (0.0-1.0); MONOCYTES % (AUTO) 9.5 %; NEUTROPHILS # (AUTO) 2.8 10^3/uL (1.5-6.6); NEUTROPHILS % (AUTO) 59.4 %; PLT - PLATELET COUNT 172 10^3/uL (130-450); RED BLOOD COUNT 4.29 10^6/uL (4.20-5.40); RED CELL DISTRIBUTION WIDTH 16.1 % (12.0-15.0); WHITE BLOOD COUNT 4.7 x10^3/uL (4.8-10.8)
[2019-07-25 18:01] LABS: HB2 TOTAL 13.3 g/dL; HEMOGLOBIN A1C 0.6 g/dL; HEMOGLOBIN A1C % 6.3 % (4.6-6.2)
[2019-07-25 18:12] LABS: BUN - BLOOD UREA NITROGEN 31 mg/dL (6-20); CALCIUM 9.2 mg/dL (8.5-10.3); CARBON DIOXIDE - CO2 27 mmol/L (21-32); CHLORIDE 105 mmol/L (101-111); CHOL/HDL RATIO 2.1 (<4.4); CHOLESTEROL 190 mg/dL; CREATININE 0.8 mg/dL (0.4-1.0); GFR - MDRD 69 (>89); GLUCOSE 125 mg/dL (70-100); HDL CHOLESTEROL 89 mg/dL; MAGNESIUM 2.4 mg/dL (1.7-2.8); SODIUM 139 mmol/L (135-145)
[2019-07-25 18:16] LABS: THYROID STIMULATING HORMONE 1.15 uIU/mL (0.34-5.60)
== END 2019-07-25 11:13 | disposition home or self-care (01) ==
LOC: LAB.S 11:12
PROVIDERS: ATTEND Internal Medicine
DX: E11.9 Type 2 diabetes mellitus without complications (principal); R63.8 Other symptoms and signs concerning food and fluid intake; R53.83 Other fatigue
CPT/HCPCS: 36415; 80048; 80061; 81599; 82043; 82542; 82607; 83036; 83721; 83735; 84443; 85025

== ENCOUNTER 2019-08-12 10:29 | Outpatient (CLI) | payer MEDICARE, OTHER ==
[2019-08-13 13:27] LABS: HEPATITIS A IGM NON-REACTIVE (NON-REACTIVE); HEPATITIS B SURFACE ANTIGEN NON-REACTIVE (NON-REACTIVE); HEPATITIS C ANTIBODY NON-REACTIVE (NON-REACTIVE)
[2019-08-13 15:15] LABS: HEPATITIS C ANTIBODY NON-REACTIVE (NON-REACTIVE)
[2019-08-20 13:54] LABS: EBV VIRAL CAPSID AB VCA IGM <36.00 U/mL
== END 2019-08-12 10:30 | disposition home or self-care (01) ==
LOC: LAB.S 10:29
PROVIDERS: ATTEND Internal Medicine
DX: R53.83 Other fatigue (principal)
CPT/HCPCS: 36415; 80074; 81599; 83519; 85651; 86140; 86376; 86665; 86704; 86800; 86803

== ENCOUNTER 2019-09-30 11:06 | Outpatient (CLI) | payer MEDICARE, OTHER ==
--- NOTE | 2019-09-30 14:22 | XRAY Report ---
Reason: TROCHANTERIC BURSITIS Procedure Date: 09/30/2019 Accession Number: [id number] / [id number] Procedure: XR - Hips 2V BILAT CPT Code: Final Report FULL RESULT: EXAM: BILATERAL HIP RADIOGRAPHY EXAM DATE: 09/30/2019 12:09 PM. CLINICAL HISTORY: TROCHANTERIC BURSITIS. COMPARISON: HIP W/PELVIS 2-3V LT 04/07/2018 1:52 PM. TECHNIQUE: 2 views each. FINDINGS: Enthesophytes at the greater trochanters, iliac crests and spines, and ischial tuberosities. No acute fracture or bone lesions. Moderate bilateral hip joint space narrowing. Degenerative changes at the visualized lower lumbar spine. Degenerative changes at the pubic symphysis. Soft Tissues: Normal. No soft tissue swelling. IMPRESSION: 1. Moderate bilateral hip joint space narrowing. 2. Enthesopathy as described above. 3. Degenerative changes at the visualized lower lumbar spine and pubic symphysis. [facility]
--- NOTE | 2019-09-30 14:26 | XRAY Report ---
Reason: TROCHANTERIC BURSITIS Procedure Date: 09/30/2019 Accession Number: [id number] / [id number] Procedure: XR - Shoulder 3 View LT CPT Code: Final Report FULL RESULT: EXAM: LEFT SHOULDER RADIOGRAPHY EXAM DATE: 09/30/2019 12:08 PM. CLINICAL HISTORY: Left shoulder pain. COMPARISON: None. TECHNIQUE: 3 views. FINDINGS: The bones are osteopenic. No acute fracture or bone lesions. Mild to moderate AC joint and glenohumeral joint osteoarthritis. No joint subluxations. Soft tissues: Calcified plaques at the thoracic aorta. IMPRESSION: 1. Osteopenia. 2. Mild to moderate AC joint and glenohumeral joint osteoarthritis. [facility]
== END 2019-09-30 11:07 | disposition home or self-care (01) ==
LOC: DI 11:06
PROVIDERS: ATTEND Internal Medicine
DX: M19.012 Primary osteoarthritis, left shoulder (principal); M85.812 Other specified disorders of bone density and structure, left shoulder; M16.0 Bilateral primary osteoarthritis of hip; M76.892 Other specified enthesopathies of left lower limb, excluding foot; M76.891 Other specified enthesopathies of right lower limb, excluding foot; M47.816 Spondylosis without myelopathy or radiculopathy, lumbar region
CPT/HCPCS: 73521

== ENCOUNTER 2020-04-02 10:40 | Outpatient (CLI) | payer MEDICARE, OTHER | END 2020-04-02 10:41 | disposition short-term general hospital (02) | LOC: EMS 10:40 | PROVIDERS: ATTEND Surgery | DX: R31.9 Hematuria, unspecified (principal); R39.15 Urgency of urination | CPT/HCPCS: A0425; A0427 ==

== ENCOUNTER 2020-04-11 08:00 | Outpatient (CLI) | payer MEDICARE, OTHER ==
[2020-04-11 16:20] LABS: BILIRUBIN,URINE NEGATIVE (NEGATIVE); GLUCOSE, URINE (UA) NEGATIVE (NEGATIVE); KETONES,URINE (UA) NEGATIVE (NEGATIVE); LEUKOCYTE ESTERASE, URINE NEGATIVE (NEGATIVE); NITRITE,URINE NEGATIVE (NEGATIVE); OCCULT BLOOD,URINE NEGATIVE (NEGATIVE); PH,URINE 7.5 PH (5.0-7.5); PROTEIN,URINE NEGATIVE (NEGATIVE); UROBILINOGEN,URINE 0.2 (NORMAL) E.U./dL (NORMAL)
[2020-04-11 16:30] LABS: BACTERIA,URINE None Seen /HPF (None Seen); CLARITY,URINE CLEAR (CLEAR); RBC,URINE None Seen /HPF (0-5); SQUAMOUS EPITHELIAL CELL,UR NONE SEEN (<= Few)
== END 2020-04-11 23:59 | disposition home or self-care (01) ==
LOC: LAB.R 08:00
PROVIDERS: ATTEND Emergency Medicine
DX: R30.0 Dysuria (principal)
CPT/HCPCS: 81001; 87086

== ENCOUNTER 2020-04-27 15:52 | Outpatient (CLI) | payer MEDICARE, OTHER ==
[2020-04-27 20:42] LABS: HGB - HEMOGLOBIN 12.7 g/dL (12.0-16.0); MEAN CORPUSCULAR HEMOGLOBIN 29.6 pg (27.0-31.0); MEAN CORPUSCULAR HGB CONC 31.9 g/dL (32.0-36.0); MEAN CORPUSCULAR VOLUME 92.8 fL (81.0-99.0); MEAN PLATELET VOLUME 11.2 fL (7.9-10.8); RED BLOOD COUNT 4.29 10^6/uL (4.20-5.40); RED CELL DISTRIBUTION WIDTH 15.3 % (12.0-15.0)
[2020-04-27 20:52] LABS: ALBUMIN 3.9 g/dL (3.2-5.5); CALCIUM 9.1 mg/dL (8.5-10.3); CREATININE 0.7 mg/dL (0.4-1.0); PHOSPHORUS 3.6 mg/dL (2.5-4.6)
[2020-04-27 20:57] LABS: BILIRUBIN,URINE NEGATIVE (NEGATIVE); GLUCOSE, URINE (UA) NEGATIVE (NEGATIVE); KETONES,URINE (UA) NEGATIVE (NEGATIVE); LEUKOCYTE ESTERASE, URINE TRACE (NEGATIVE); NITRITE,URINE NEGATIVE (NEGATIVE); OCCULT BLOOD,URINE TRACE-INTA (NEGATIVE); PROTEIN,URINE NEGATIVE (NEGATIVE); UROBILINOGEN,URINE 0.2 (NORMAL) E.U./dL (NORMAL)
[2020-04-27 21:03] LABS: MICROALBUMIN,URINE 7.2 mg/dL (0-300.0)
[2020-04-27 21:19] LABS: BACTERIA,URINE Rare /HPF (None Seen); CLARITY,URINE HAZY (CLEAR); EPITHELIAL CELLS,UR RARE Transitional /HPF (<= Few); SQUAMOUS EPITHELIAL CELL,UR RARE Squamous (<= Few)
== END 2020-04-27 15:53 | disposition home or self-care (01) ==
LOC: LAB.S 15:52
PROVIDERS: ATTEND Internal Medicine Nephrology
DX: N18.2 Chronic kidney disease, stage 2 (mild) (principal); E11.9 Type 2 diabetes mellitus without complications
CPT/HCPCS: 36415; 80069; 81001; 82043; 82570; 85027

== ENCOUNTER 2020-06-16 13:45 | Outpatient (CLI) | payer MEDICARE, OTHER ==
[2020-06-16 18:10] LABS: HGB - HEMOGLOBIN 13.1 g/dL (12.0-16.0); MEAN CORPUSCULAR HEMOGLOBIN 30.9 pg (27.0-31.0); MEAN CORPUSCULAR HGB CONC 33.6 g/dL (32.0-36.0); MEAN PLATELET VOLUME 11.8 fL (7.9-10.8); RED BLOOD COUNT 4.24 10^6/uL (4.20-5.40); RED CELL DISTRIBUTION WIDTH 15.6 % (12.0-15.0); WHITE BLOOD COUNT 6.5 x10^3/uL (4.8-10.8)
[2020-06-16 18:11] LABS: BILIRUBIN,URINE NEGATIVE (NEGATIVE); GLUCOSE, URINE (UA) NEGATIVE (NEGATIVE); KETONES,URINE (UA) NEGATIVE (NEGATIVE); LEUKOCYTE ESTERASE, URINE NEGATIVE (NEGATIVE); NITRITE,URINE NEGATIVE (NEGATIVE); OCCULT BLOOD,URINE TRACE-INTA (NEGATIVE); PH,URINE 6.5 PH (5.0-7.5); PROTEIN,URINE NEGATIVE (NEGATIVE); UROBILINOGEN,URINE 0.2 (NORMAL) E.U./dL (NORMAL)
[2020-06-16 18:19] LABS: BACTERIA,URINE None Seen /HPF (None Seen); CLARITY,URINE CLEAR (CLEAR); EPITHELIAL CELLS,UR FEW Transitional /HPF (<= Few); RBC,URINE 0-5 /HPF (0-5); SQUAMOUS EPITHELIAL CELL,UR RARE Squamous (<= Few)
[2020-06-16 18:32] LABS: CREATININE,URINE 149.2 mg/dL; MICROALBUM/CREATININE RATIO,UR 38.9 ug/mg (<30.0); MICROALBUMIN,URINE 5.8 mg/dL (0-300.0)
[2020-06-17 14:00] LABS: HEMOGLOBIN A1c% 6.1 % (4.27-6.07)
[2020-06-21 14:38] LABS: ANA SCREEN NEGATIVE (NEGATIVE)
== END 2020-06-16 13:46 | disposition home or self-care (01) ==
LOC: LAB.S 13:45
PROVIDERS: ATTEND Internal Medicine
DX: E11.9 Type 2 diabetes mellitus without complications (principal); N19 Unspecified kidney failure; R53.83 Other fatigue; Q64.9 Congenital malformation of urinary system, unspecified; M79.7 Fibromyalgia; M25.50 Pain in unspecified joint; D64.9 Anemia, unspecified
CPT/HCPCS: 36415; 81001; 82043; 82570; 83036; 85027; 86038; 86140; 87086

== ENCOUNTER 2020-10-05 10:51 | Outpatient (CLI) | payer MEDICARE, OTHER ==
[2020-10-05 15:10] LABS: BILIRUBIN,URINE NEGATIVE (NEGATIVE); GLUCOSE, URINE (UA) NEGATIVE (NEGATIVE); KETONES,URINE (UA) NEGATIVE (NEGATIVE); LEUKOCYTE ESTERASE, URINE NEGATIVE (NEGATIVE); NITRITE,URINE NEGATIVE (NEGATIVE); OCCULT BLOOD,URINE TRACE-INTA (NEGATIVE); PROTEIN,URINE NEGATIVE (NEGATIVE); UROBILINOGEN,URINE 0.2 (NORMAL) E.U./dL (NORMAL)
[2020-10-05 15:12] LABS: BACTERIA,URINE None Seen /HPF (None Seen); CLARITY,URINE CLEAR (CLEAR); RBC,URINE 0-5 /HPF (0-5); SQUAMOUS EPITHELIAL CELL,UR FEW Squamous (<= Few); WBC,URINE 0-3 /HPF (0-5)
[2020-10-05 15:16] LABS: BASOPHILS % (AUTO) 0.5 %; EOSINOPHILS # (AUTO) 0.1 10^3/uL (0.0-0.7); EOSINOPHILS % (AUTO) 3.4 %; HCT - HEMATOCRIT 41.1 % (37.0-47.0); HGB - HEMOGLOBIN 13.4 g/dL (12.0-16.0); LYMPHOCYTES # (AUTO) 1.2 10^3/uL (1.5-3.5); LYMPHOCYTES % (AUTO) 27.9 %; MEAN CORPUSCULAR HEMOGLOBIN 30.2 pg (27.0-31.0); MEAN CORPUSCULAR HGB CONC 32.6 g/dL (32.0-36.0); MEAN CORPUSCULAR VOLUME 92.6 fL (81.0-99.0); MEAN PLATELET VOLUME 11.9 fL (7.9-10.8); MONOCYTES # (AUTO) 0.5 10^3/uL (0.0-1.0); MONOCYTES % (AUTO) 11.7 %; NEUTROPHILS # (AUTO) 2.3 10^3/uL (1.5-6.6); NEUTROPHILS % (AUTO) 56.3 %; PLT - PLATELET COUNT 179 10^3/uL (130-450); RED BLOOD COUNT 4.44 10^6/uL (4.20-5.40); RED CELL DISTRIBUTION WIDTH 15.1 % (12.0-15.0); WHITE BLOOD COUNT 4.1 x10^3/uL (4.8-10.8)
[2020-10-05 15:27] LABS: ALBUMIN 4.2 g/dL (3.2-5.5); CALCIUM 9.6 mg/dL (8.5-10.3); CREATININE 0.9 mg/dL (0.4-1.0); PHOSPHORUS 3.5 mg/dL (2.5-4.6); POTASSIUM 3.9 mmol/L (3.5-5.0)
[2020-10-05 16:27] LABS: CREATININE,URINE 69.9 mg/dL; MICROALBUM/CREATININE RATIO,UR 18.6 ug/mg (<30.0); MICROALBUMIN,URINE 1.3 mg/dL (0-300.0)
[2020-10-05 20:22] LABS: ESTIMATED AVERAGE GLUCOSE 123 mg/dL (70-100); HEMOGLOBIN A1c% 5.9 % (4.27-6.07)
== END 2020-10-05 10:52 | disposition home or self-care (01) ==
LOC: LAB.S 10:51
PROVIDERS: ATTEND Internal Medicine
DX: I48.0 Paroxysmal atrial fibrillation (principal); N18.2 Chronic kidney disease, stage 2 (mild); D64.9 Anemia, unspecified; E11.9 Type 2 diabetes mellitus without complications
CPT/HCPCS: 36415; 80069; 81001; 82043; 82570; 83036; 85025

== ENCOUNTER 2020-11-14 16:40 | Outpatient (CLI) | payer MEDICARE, OTHER ==
[2020-11-14 20:09] LABS: BILIRUBIN,URINE NEGATIVE (NEGATIVE); GLUCOSE, URINE (UA) NEGATIVE (NEGATIVE); KETONES,URINE (UA) NEGATIVE (NEGATIVE); LEUKOCYTE ESTERASE, URINE NEGATIVE (NEGATIVE); NITRITE,URINE NEGATIVE (NEGATIVE); OCCULT BLOOD,URINE TRACE-INTA (NEGATIVE); PROTEIN,URINE NEGATIVE (NEGATIVE); UROBILINOGEN,URINE 0.2 (NORMAL) E.U./dL (NORMAL)
[2020-11-14 20:13] LABS: CLARITY,URINE CLEAR (CLEAR)
[2020-11-14 20:21] LABS: BACTERIA,URINE Rare /HPF (None Seen); RBC,URINE 0-5 /HPF (0-5); SQUAMOUS EPITHELIAL CELL,UR RARE Squamous (<= Few); WBC,URINE 0-3 /HPF (0-5)
== END 2020-11-14 16:41 | disposition home or self-care (01) ==
LOC: LAB.S 16:40
DX: N39.0 Urinary tract infection, site not specified (principal)
CPT/HCPCS: 81001; 87086

== ENCOUNTER 2020-11-20 08:00 | Outpatient (CLI) | payer MEDICARE, OTHER | END 2020-11-20 23:59 | disposition home or self-care (01) | LOC: LAB.S 08:00 | PROVIDERS: ATTEND Physician Assistant Medical | DX: M54.9 Dorsalgia, unspecified (principal) | CPT/HCPCS: 87086 ==

== ENCOUNTER 2021-01-29 08:00 | Outpatient (CLI) | payer MEDICARE, OTHER | END 2021-01-29 23:59 | disposition home or self-care (01) | LOC: LAB.S 08:00 | PROVIDERS: ATTEND Physician Assistant Medical | DX: R10.30 Lower abdominal pain, unspecified (principal); R31.9 Hematuria, unspecified | CPT/HCPCS: 87086 ==

== ENCOUNTER 2021-03-12 08:14 | Outpatient (CLI) | payer MEDICARE, OTHER ==
[2021-03-12 14:58] LABS: BASOPHILS % (AUTO) 0.5 %; EOSINOPHILS # (AUTO) 0.1 10^3/uL (0.0-0.7); HCT - HEMATOCRIT 40.3 % (37.0-47.0); HGB - HEMOGLOBIN 12.9 g/dL (12.0-16.0); LYMPHOCYTES # (AUTO) 1.4 10^3/uL (1.5-3.5); LYMPHOCYTES % (AUTO) 30.8 %; MEAN CORPUSCULAR HEMOGLOBIN 29.7 pg (27.0-31.0); MEAN CORPUSCULAR VOLUME 92.6 fL (81.0-99.0); MEAN PLATELET VOLUME 11.4 fL (7.9-10.8); MONOCYTES # (AUTO) 0.5 10^3/uL (0.0-1.0); NEUTROPHILS # (AUTO) 2.4 10^3/uL (1.5-6.6); NEUTROPHILS % (AUTO) 54.5 %; PLT - PLATELET COUNT 165 10^3/uL (130-450); RED BLOOD COUNT 4.35 10^6/uL (4.20-5.40); RED CELL DISTRIBUTION WIDTH 15.9 % (12.0-15.0); WHITE BLOOD COUNT 4.4 x10^3/uL (4.8-10.8)
[2021-03-12 15:12] LABS: BILIRUBIN,URINE NEGATIVE (NEGATIVE); GLUCOSE, URINE (UA) NEGATIVE (NEGATIVE); KETONES,URINE (UA) NEGATIVE (NEGATIVE); LEUKOCYTE ESTERASE, URINE NEGATIVE (NEGATIVE); NITRITE,URINE NEGATIVE (NEGATIVE); OCCULT BLOOD,URINE NEGATIVE (NEGATIVE); PROTEIN,URINE NEGATIVE (NEGATIVE); UROBILINOGEN,URINE 0.2 (NORMAL) E.U./dL (NORMAL)
[2021-03-12 15:25] LABS: CLARITY,URINE CLEAR (CLEAR); RBC,URINE None Seen /HPF (0-5); WBC,URINE 0-3 /HPF (0-5)
[2021-03-12 15:26] LABS: BACTERIA,URINE None Seen /HPF (None Seen); SQUAMOUS EPITHELIAL CELL,UR NONE SEEN (<= Few)
[2021-03-12 15:49] LABS: THYROID STIMULATING HORMONE 1.35 uIU/mL (0.34-5.60)
[2021-03-12 15:52] LABS: ALBUMIN 4.2 g/dL (3.2-5.5); ALBUMIN/GLOBULIN RATIO 1.9 (1.0-2.2); ALKALINE PHOSPHATASE 42 IU/L (42-121); ALT ALANINE AMINOTRANSFERASE 22 IU/L (10-60); AST ASPARTATE AMINOTRANSFERASE 23 IU/L (10-42); BILIRUBIN,TOTAL 1.3 mg/dL (0.2-1.0); BUN - BLOOD UREA NITROGEN 30 mg/dL (6-20); CALCIUM 10.1 mg/dL (8.5-10.3); CARBON DIOXIDE - CO2 28 mmol/L (21-32); CHLORIDE 106 mmol/L (101-111); CHOLESTEROL 188 mg/dL; CREATININE 1.1 mg/dL (0.4-1.0); GFR - MDRD 47 (>89); GLUCOSE 128 mg/dL (70-100); HDL CHOLESTEROL 96 mg/dL; POTASSIUM 4.5 mmol/L (3.5-5.0); SODIUM 143 mmol/L (135-145); TOTAL PROTEIN 6.4 g/dL (6.7-8.2); TRIGLYCERIDES 24 mg/dL
[2021-03-12 15:54] LABS: CREATININE,URINE 96.8 mg/dL; MICROALBUM/CREATININE RATIO,UR 15.5 ug/mg (<30.0); MICROALBUMIN,URINE 1.5 mg/dL (0-300.0)
[2021-03-12 20:54] LABS: ESTIMATED AVERAGE GLUCOSE 128 mg/dL (70-100); HEMOGLOBIN A1c% 6.1 % (4.27-6.07)
== END 2021-03-12 08:15 | disposition home or self-care (01) ==
LOC: LAB.S 08:14
PROVIDERS: ATTEND Internal Medicine
DX: N19 Unspecified kidney failure (principal); R31.9 Hematuria, unspecified; R53.83 Other fatigue; Z79.01 Long term (current) use of anticoagulants; R03.0 Elevated blood-pressure reading, without diagnosis of hypertension; E11.9 Type 2 diabetes mellitus without complications; Q64.9 Congenital malformation of urinary system, unspecified; I48.0 Paroxysmal atrial fibrillation
CPT/HCPCS: 36415; 80053; 80061; 81001; 82043; 82570; 83036; 83721; 84443; 85025

== ENCOUNTER 2021-04-04 15:12 | Outpatient (CLI) | payer MEDICARE, OTHER ==
--- NOTE | 2021-04-04 18:10 | Ultrasound Report ---
PROCEDURE: Abdomen Complete INDICATIONS: DIFFUSE ABD PAIN TECHNIQUE: Real-time scanning was performed of the abdominal and retroperitoneal organs, with image documentatio n. COMPARISON: Prior abdominal ultrasound dated 09/08/2018. FINDINGS: Liver: Liver is normal in size and homogeneous in echotexture. Presumed left hepatic lobe hemangiom a appears similar prior examination measuring 7 mm in maximal diameter. Gallbladder: Surgically absent. Biliary ducts: Intrahepatic bile ducts are non-dilated. Extrahepatic bile duct caliber measures 12. 5 mm. Normal is 6-7 mm or less in diameter, or 10 mm or less post-cholecystectomy. Pancreas: Visualized portions of the pancreas are sonographically normal. Spleen: Spleen is normal in size and homogeneous in echotexture. Kidneys: Kidneys are normal in size and echotexture. Right kidney measures 9.4 cm long; left kidney measures 8.6 cm long. No hydronephrosis or nephrolithiasis. No solid masses. Aorta: Visualized aorta is normal in caliber at less than 3 cm. Iliacs: Proximal common iliac arteries are normal in caliber at less than 2.5 cm. IVC: Intrahepatic inferior vena cava is patent. Miscellaneous: No free abdominal fluid. IMPRESSION: Echogenic appearance of the hepatic parenchyma likely related to hepatic steatosis similar prior exam ination as well as presumed left hepatic lobe hemangioma measuring 7 mm. Mild prominence of the extra hepatic bile duct measures up to 12.5 mm. Recommend correlation with LFT s. If indicated, MRCP could be performed for further evaluation. Reviewed by: ELIZABETH Donato on 04/04/2021 6:09 PM PDT Approved by: Antoine Sarmiento on 04/04/2021 6:09 PM PDT Station ID: [id number]
== END 2021-04-04 15:13 | disposition home or self-care (01) ==
LOC: DI 15:12
PROVIDERS: ATTEND Physician Assistant
DX: R10.84 Generalized abdominal pain (principal); R93.2 Abnormal findings on diagnostic imaging of liver and biliary tract

== ENCOUNTER 2021-04-06 10:42 | Emergency (ER) | payer MEDICARE, OTHER ==
[2021-04-06 11:46] LABS: BASOPHILS % (AUTO) 0.4 %; EOSINOPHILS # (AUTO) 0.1 10^3/uL (0.0-0.7); EOSINOPHILS % (AUTO) 1.1 %; HCT - HEMATOCRIT 38.3 % (37.0-47.0); HGB - HEMOGLOBIN 12.7 g/dL (12.0-16.0); LYMPHOCYTES # (AUTO) 1.1 10^3/uL (1.5-3.5); LYMPHOCYTES % (AUTO) 23.4 %; MEAN CORPUSCULAR HEMOGLOBIN 29.7 pg (27.0-31.0); MEAN CORPUSCULAR HGB CONC 33.2 g/dL (32.0-36.0); MEAN CORPUSCULAR VOLUME 89.5 fL (81.0-99.0); MEAN PLATELET VOLUME 10.7 fL (7.9-10.8); MONOCYTES # (AUTO) 0.5 10^3/uL (0.0-1.0); MONOCYTES % (AUTO) 11.5 %; NEUTROPHILS # (AUTO) 2.9 10^3/uL (1.5-6.6); NEUTROPHILS % (AUTO) 63.4 %; PLT - PLATELET COUNT 174 10^3/uL (130-450); RED BLOOD COUNT 4.28 10^6/uL (4.20-5.40); RED CELL DISTRIBUTION WIDTH 15.2 % (12.0-15.0); WHITE BLOOD COUNT 4.5 x10^3/uL (4.8-10.8)
[2021-04-06 11:58] LABS: ALBUMIN 3.9 g/dL (3.2-5.5); ALBUMIN/GLOBULIN RATIO 1.5 (1.0-2.2); BILIRUBIN,TOTAL 0.8 mg/dL (0.2-1.0); CALCIUM 9.2 mg/dL (8.5-10.3); CREATININE 0.9 mg/dL (0.4-1.0); POTASSIUM 4.2 mmol/L (3.5-5.0); TOTAL PROTEIN 6.5 g/dL (6.7-8.2)
[2021-04-06 12:36] LABS: BILIRUBIN,URINE NEGATIVE (NEGATIVE); GLUCOSE, URINE (UA) NEGATIVE (NEGATIVE); KETONES,URINE (UA) NEGATIVE (NEGATIVE); LEUKOCYTE ESTERASE, URINE NEGATIVE (NEGATIVE); NITRITE,URINE NEGATIVE (NEGATIVE); OCCULT BLOOD,URINE TRACE-INTA (NEGATIVE); PROTEIN,URINE NEGATIVE (NEGATIVE); UROBILINOGEN,URINE 0.2 (NORMAL) E.U./dL (NORMAL)
[2021-04-06 12:37] LABS: CLARITY,URINE CLEAR (CLEAR)
--- NOTE | 2021-04-06 12:55 | ED Physician Documentation ---
PD HPI ABD PAIN - Stated complaint Stated Complaint: ABD PX - Chief complaint Chief Complaint: Abd Pain - History obtained from History obtained from: Patient - History of Present Illness Timing - onset: How many weeks ago (2) Timing - duration: Weeks (2) Timing - details: Gradual onset, Still present Quality: Other (burning pain to the inside) Location: Periumbilical, Suprapubic Improved by: Other (nothing) Worsened by: Moving, Position, Palpation Associated symptoms: No: Fever, Nausea, Vomiting, Hematemesis, Diarrhea, Constipation, Hematochezia Similar symptoms before: Has not had sx before Recently seen: Other (has had RUQ ultrasound done last week.) - Additional information Additional information: 85-year-old female with history of atrial fibrillation has developed abdominal burning sensation in the suprapubic and periumbilical area that is worse with movement. She does not think this has anything to do with her digestion she seems to be eating well is having normal bowel movements and has normal urination. Only in the last days that she noticed that if she tries to strain for stool that she is having some pain associated. She has had an ultrasound of her right upper quadrant. Review of Systems Constitutional: denies: Fever Eyes: denies: Decreased vision Ears: denies: Ear pain Nose: denies: Congestion Throat: denies: Sore throat Cardiac: denies: Chest pain / pressure, Palpitations Respiratory: denies: Dyspnea, Cough GI: reports: Abdominal Pain. 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 : None HEENT: None Psych: None Musculoskeletal: None Derm: None - Past Surgical History Past Surgical History: Yes General: Cholecystectomy, Appendectomy Ortho: Other /RIGGING LOFT MECHANIC: Hysterectomy HEENT: Tonsil/Adenoidectomy - Allergies Allergies/Adverse Reactions: Allergies Allergy/AdvReac Type Severity Reaction Status Date / Time aspirin Allergy Severe throat pain Verified 04/06/21 11:11 - Social History Does the pt smoke?: No Smoking Status: Never smoker Does the pt drink ETOH?: No Does the pt have substance abuse?: No - Immunizations Immunizations are current?: Yes - POLST Patient has POLST: No PD ED PE NORMAL - Vitals Vital signs reviewed: Yes (Hypertensive mild) - General General: Alert and oriented X 3, No acute distress, Well developed/nourished - HEENT HEENT: Atraumatic, PERRL, EOMI - Neck Neck: Supple, no meningeal sign, No bony TTP - Cardiac Cardiac: RRR, No murmur - Respiratory Respiratory: No respiratory distress, Clear bilaterally - Abdomen Abdomen: Normal bowel sounds, Soft, No organomegaly, Other (Mild lower abdomen distention without guarding to the tenderness generally tender but without wincing.) - Back Back: No CVA TTP, No spinal TTP - Derm Derm: Normal color, Warm and dry, No rash - Extremities Extremities: No deformity, No edema - Neuro Neuro: Alert and oriented X 3, 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, No motor deficit, No sensory deficit, Normal speech Eye Opening: Spontaneous Motor: Obeys Commands Verbal: Oriented GCS Score: 15 - Psych Psych: Normal mood, Normal affect Results - Vitals Vitals: Vital Signs - 24 hr 04/06/21 04/06/21 04/06/21 11:07 12:42 14:00 Temperature 36.8 C 36.8 C 36.6 C Heart Rate 78 78 76 Respiratory 17 16 16 Rate Blood Pressure 152/79 H 157/79 H 150/80 H O2 Saturation 100 100 98 Oxygen O2 Source Room air - Labs Labs: Laboratory Tests 04/06/21 04/06/21 04/06/21 11:34 11:34 11:58 WBC 4.5 L RBC 4.28 Hgb 12.7 Hct 38.3 MCV 89.5 MCH 29.7 MCHC 33.2 RDW 15.2 H Plt Count 174 MPV 10.7 Neut # (Auto) 2.9 Lymph # (Auto) 1.1 L [place] # (Auto) 0.5 Eos # (Auto) 0.1 Baso # (Auto) 0.0 Absolute Nucleated RBC 0.00 Nucleated RBC % 0.0 Sodium 138 Potassium 4.2 Chloride 103 Carbon Dioxide 26 Anion Gap 9.0 BUN 32 H Creatinine 0.9 Estimated GFR (MDRD) 60 L Glucose 109 H Calcium 9.2 Total Bilirubin 0.8 AST 23 ALT 23 Alkaline Phosphatase 44 Total Protein 6.5 L Albumin 3.9 Globulin 2.6 Albumin/Globulin Ratio 1.5 Lipase 35 Urine Color YELLOW Urine Clarity CLEAR Urine pH 6.0 Ur Specific [place] <=1.005 Urine Protein NEGATIVE Urine Glucose (UA) NEGATIVE Urine Ketones NEGATIVE Urine Occult Blood TRACE-INTA Urine Nitrite NEGATIVE Urine Bilirubin NEGATIVE Urine Urobilinogen 0.2 (NORMAL) Ur Leukocyte Esterase NEGATIVE Ur Microscopic Review NOT INDICATED Urine Culture Comments NOT INDICATED - Rads (name of study) CT ab/pel with Radiology: Prelim report reviewed (Impression: 1. No acute abdominal findings. Diffuse moderate colonic stool burden. Hepatic steatosis.), EMP read indepedently, See rad report Procedures - Bedside sono Bedside sono by EMP: With use bedside ultrasound the bladder is imaged it is sonographically not the source of tenderness for the patient and appears unremarkable there is no distention to the bladder. PD MEDICAL DECISION MAKING - ED course Complexity details: reviewed results, re-evaluated patient, considered differential, d/w patient ED course: 85-year-old female with a burning-like sensation to her abdomen is found to have an excessive stool load on her CT scan of her abdomen pelvis. This was a bit surprising as she reports having normal bowel movements daily. She is administered an oil retention enema. The amount of constipation is impressive and likely accounts for the patient's symptoms. There were no other findings on physical exam, blood work, urinalysis or history. Departure - Departure Disposition: 01 Home, Self Care Clinical Impression: Constipation Qualifiers: Constipation type: unspecified constipation type Qualified Code(s): K59.00 - Constipation, unspecified Condition: Stable Instructions: ED Constipation Follow-Up: Hyun Shepard ARNP [Primary Care Provider] - Comments: Today you have been given a dose of milk of magnesia and the expectation is that this will produce a bowel movement within 6 hours. If you do not have a bowel movement within 6 hours take a second dose. Once you have cleaned your colon out start some MiraLAX on a daily basis. Follow-up with your primary care doctor.
[2021-04-06] MEDS ORDERED: IOPAMIDOL-300 50 ML VIAL ONE (12:59)
--- NOTE | 2021-04-06 13:54 | CT Report ---
PROCEDURE: Abdomen/Pelvis W INDICATIONS: suprapubic pain CONTRAST: IV CONTRAST: Isovue 300 ml: 100 PO CONTRAST: *NO PO CONTRAST TECHNIQUE: After the administration of 100 mL Isovue-300 intravenous contrast, 5 mm thick sections acquired from the diaphragms to the symphysis. 5 mm thick coronal and sagittal reformats were acquired. For radi ation dose reduction, the following was used: automated exposure control, adjustment of mA and/or kV according to patient size. COMPARISON: CT abdomen/pelvis January 07, 2017. FINDINGS: Image quality: Excellent. ABDOMEN: Lung bases: Lung bases are clear. Heart size is normal. Solid organs: Liver and spleen are normal in size. Diffuse hypoattenuation of the liver. Gallbladder is surgically absent. Biliary system is non dilated. Pancreas enhances normally. No adrenal nodul es. Kidneys demonstrate normal size and enhancement, without hydronephrosis. Peritoneum and bowel: Bowel loops demonstrate normal wall thickness and caliber. Diffuse moderate ch ronic stool burden. Appendix is not definitely visualized. No free fluid or air. Nodes and vessels: No retroperitoneal or mesenteric adenopathy by size criteria. Aorta and inferior vena cava are normal in size. Miscellaneous: No ventral hernias. PELVIS: Genitourinary: Bladder wall thickness is normal. Bladder is distended. Miscellaneous: No inguinal hernias or adenopathy. Bones: No suspicious bony lesions. No vertebral body compression fractures. Multilevel degenerativ e changes of the spine. IMPRESSION: 1. No acute abdominal findings. 2. Diffuse moderate colonic stool burden. 3. Hepatic steatosis. Reviewed by: John Sepulveda on 04/06/2021 12:52 PM STEVEN Approved by: John Sepulveda on 04/06/2021 12:52 PM STEVEN Station ID: [id number]
[2021-04-06] MEDS ORDERED: IOPAMIDOL-300 50 ML VIAL IVP ONE (14:14)
[2021-04-06] MEDS ORDERED: MAGNESIUM HYDROXIDE 2,400 MG/30 ML UDC PO STA (15:35)
[2021-04-06 16:08] VITALS: BP 127/60
== END 2021-04-06 16:36 | disposition home or self-care (01) ==
LOC: ED 10:42
DX: K59.00 Constipation, unspecified (principal)
CPT/HCPCS: 36415; 74177; 80053; 81003; 83690; 85025; 99284; A9270; Q9967; 81001; 87086

== ENCOUNTER 2021-06-05 09:29 | Outpatient (CLI) | payer MEDICARE, OTHER ==
--- NOTE | 2021-06-10 11:51 | CT Report ---
PROCEDURE: CHEST WO INDICATIONS: ENLARGED LYMPH NODE TECHNIQUE: Noncontrast 1mm axial images were acquired from the pulmonary apices to the posterior costophrenic an gles. Axial 5 mm soft tissue kernel reconstructions were performed as well as 8 mm axial MIP and cor onal and sagittal 5 mm reformations. For radiation dose reduction, the following was used: automate d exposure control, adjustment of mA and/or kV according to patient size. COMPARISON: CT chest report, 11/22/2012. FINDINGS: Image quality: Excellent. Lungs and pleura: There are multiple nodules. Nodule 1: 2 mm; right lower lobe; series 4 image 166. Nodule 2: 2 mm; left lower lobe; series 4 image 177. Nodule 3: 3 mm; left lower lobe; series 4 image 172. Nodule 4: 2 mm; right middle lobe; series 4 image 157. No acute air space opacities. Right middle lobe and lingular scars and atelectasis. No pleural effus ions or pneumothorax. Central and peripheral airways are patent and normal in caliber. Mediastinum: Heart size is normal. Moderate coronary artery calcification. No pericardial effusion. No mediastinal adenopathy by size criteria. Thoracic aorta and central pulmonary arteries are norm al in size. Moderate atherosclerotic calcifications. Esophagus is normal in caliber. No hiatal evi ia. Bones and chest wall: No suspicious bony lesions. Scoliosis and degenerative changes seen thoracic and lumbar spine. Osteopenia. No vertebral body compression fractures. No axillary or supraclavicula r adenopathy by size criteria. The thyroid is normal in size and there are no incidental findings. Abdomen: Visualized upper abdominal solid organs and bowel loops appear normal in the absence of con trast. Cholecystectomy clips are noted. IMPRESSION: 1. No enlarged lymph node is identified in thorax although the examination is suboptimal in the absen ce of intravenous contrast. Cannot rule out hilar lymphadenopathy. If clinically indicated, contrast- enhanced chest CT may be obtained. 2. Multiple small lung nodules bilaterally. Please see enclosed follow-up recommendation Fleischner Society criteria for SOLID lung nodule followup. Nodule size (mm)Low-risk patientHigh-risk patient "d4No follow-up neededFollow-up at 12 mo; if no change, no further follow-up >9-4Udkrwv-ay CT at 12 mo; if no change, no further follow-up needed.Initial follow-up CT at 6-12 mo, then 18-24 mo if no change. >6-8Initial follow-up CT at 6-12 mo, then 18-24 mo if no change. Initial follow-up CT at 3-6 mo, then 9-12 mo and 24 mo if no change. >8Follow-up CT at 3, 9, 24 mo. Or PET and/or biopsy.Same as for low-risk pts. Reviewed by: Alyssa Verma MD on 06/10/2021 11:50 AM PDT Approved by: Alyssa Verma MD on 06/10/2021 11:50 AM PDT Station ID: [id number]
== END 2021-06-05 09:30 | disposition home or self-care (01) ==
LOC: DI 09:29
PROVIDERS: ATTEND Internal Medicine
DX: R59.0 Localized enlarged lymph nodes (principal); R91.8 Other nonspecific abnormal finding of lung field

== ENCOUNTER 2021-06-05 09:50 | Emergency (ER) | payer MEDICARE, OTHER ==
[2021-06-05 10:43] LABS: BILIRUBIN,URINE NEGATIVE (NEGATIVE); CLARITY,URINE CLEAR (CLEAR); GLUCOSE, URINE (UA) NEGATIVE (NEGATIVE); KETONES,URINE (UA) NEGATIVE (NEGATIVE); LEUKOCYTE ESTERASE, URINE NEGATIVE (NEGATIVE); NITRITE,URINE NEGATIVE (NEGATIVE); OCCULT BLOOD,URINE TRACE-INTA (NEGATIVE); PROTEIN,URINE NEGATIVE (NEGATIVE); UROBILINOGEN,URINE 0.2 (NORMAL) E.U./dL (NORMAL)
--- NOTE | 2021-06-05 10:54 | ED Physician Documentation ---
PD HPI ABD PAIN - Stated complaint Stated Complaint: ABDOMINAL PX - Chief complaint Chief Complaint: Abd Pain - History obtained from History obtained from: Patient - History of Present Illness Timing - onset: How many months ago (3) Timing - duration: Months (3) Timing - details: Gradual onset, Waxing and waning Pain level max: 7 Pain level now: 4 Quality: Other ("burning") Location: RLQ, Suprapubic, LLQ Radiation: No: Chest, , Lower back, Left flank, Left shoulder, Right flank, Right shoulder, Upper back Improved by: No: Eating, Laying still, Vomiting, BM, Position, Meds Worsened by: No: Eating, Moving, Breathing, Position, Palpation Associated symptoms: No: Fever, Nausea, Vomiting, Hematemesis, Diarrhea, Constipation, Melena, Hematochezia, Dysuria, Hematuria Similar symptoms before: Has not had sx before Recently seen: Not recently seen Review of Systems Constitutional: denies: Fever, Chills GI: denies: Vomiting, Diarrhea Skin: denies: Rash Musculoskeletal: denies: Neck pain, Back pain Neurologic: denies: Headache PD PAST MEDICAL HISTORY - Past Medical History Cardiovascular: None Respiratory: None Neuro: None Endocrine/Autoimmune: None GI: None VASCULAR MANAGER: None : None HEENT: None Psych: None Musculoskeletal: None Derm: None - Past Surgical History Past Surgical History: Yes General: Cholecystectomy, Appendectomy Ortho: Other /VASCULAR MANAGER: Hysterectomy HEENT: Tonsil/Adenoidectomy - Present Medications Home Medications: Ambulatory Orders Medication Instructions Recorded Confirmed Lidocaine Patch 5% [Lidoderm Patch] 1 patch TOP DAILY PRN #10 patch 06/05/21 - Allergies Allergies/Adverse Reactions: Allergies Allergy/AdvReac Type Severity Reaction Status Date / Time aspirin Allergy Severe throat pain Verified 06/05/21 10:03 - Social History Does the pt smoke?: No Smoking Status: Never smoker Does the pt drink ETOH?: No Does the pt have substance abuse?: No - Immunizations Immunizations are current?: Yes - POLST Patient has POLST: No PD ED PE NORMAL - Vitals Vital signs reviewed: Yes - General General: Alert and oriented X 3, No acute distress - HEENT HEENT: Moist mucous membranes - Neck Neck: Supple, no meningeal sign - Cardiac Cardiac: RRR, Strong equal pulses - Respiratory Respiratory: No respiratory distress, Clear bilaterally - Abdomen Abdomen: Soft, Non tender, Non distended - Derm Derm: Warm and dry - Neuro Neuro: Alert and oriented X 3 - Psych Psych: Normal mood, Normal affect Results - Vitals Vitals: Vital Signs - 24 hr 06/05/21 06/05/21 06/05/21 09:58 11:00 12:58 Temperature 36.5 C Heart Rate 66 62 65 Respiratory 15 15 15 Rate Blood Pressure 152/63 H 148/86 H 158/73 H O2 Saturation 98 97 99 Oxygen O2 Source Room air - Labs Labs: Laboratory Tests 06/05/21 06/05/21 06/05/21 10:33 10:55 10:55 WBC 4.8 RBC 4.49 Hgb 13.5 Hct 40.4 MCV 90.0 MCH 30.1 MCHC 33.4 RDW 14.5 Plt Count 197 MPV 10.8 Neut # (Auto) 3.0 Lymph # (Auto) 1.1 L [place] # (Auto) 0.5 Eos # (Auto) 0.1 Baso # (Auto) 0.0 Absolute Nucleated RBC 0.00 Nucleated RBC % 0.0 Sodium 140 Potassium 4.5 Chloride 103 Carbon Dioxide 27 Anion Gap 10.0 BUN 33 H Creatinine 0.8 Estimated GFR (MDRD) 68 L Glucose 117 H Calcium 10.4 H Total Bilirubin 0.9 AST 20 ALT 20 Alkaline Phosphatase 51 Total Protein 6.8 Albumin 4.3 Globulin 2.5 Albumin/Globulin Ratio 1.7 Lipase 39 Urine Color YELLOW Urine Clarity CLEAR Urine pH 6.0 Ur Specific [place] 1.010 Urine Protein NEGATIVE Urine Glucose (UA) NEGATIVE Urine Ketones NEGATIVE Urine Occult Blood TRACE-INTA Urine Nitrite NEGATIVE Urine Bilirubin NEGATIVE Urine Urobilinogen 0.2 (NORMAL) Ur Leukocyte Esterase NEGATIVE Ur Microscopic Review NOT INDICATED Urine Culture Comments NOT INDICATED - Rads (name of study) CT abd/pelvis Radiology: Final report received, EMP read contemporaneously, See rad report (1.Mild enlargement of the left oblique muscle with surrounding infiltrative change, compatible with edema.) PD MEDICAL DECISION MAKING - ED course Complexity details: reviewed results, re-evaluated patient, considered differential, d/w patient ED course: Unclear etiology the patient's symptoms. She does have some mild edema and the left oblique muscle. This is an area she is continuously rubbing. Likely traum atic. Encouraged her to try to leave the area alone is much as possible. We will trial her on Lidoderm patches for home as she is on blood thinners. Patient counseled regarding signs and symptoms for which I believe and urgent re- evaluation would be necessary. Patient with good understanding of and agreement to plan and is comfortable going home at this time This document was made in part using voice recognition software. While efforts are made to proofread this document, sound alike and grammatical errors may occur. Departure - Departure Disposition: Home, Self Care Clinical Impression: Abdominal wall pain Condition: Good Instructions: ED Abdominal Pain Female Non-Specific Abdominal Pain Follow-Up: Diamante Broussard MD [Primary Care Provider] - Within 1 week Prescriptions: Lidocaine Patch 5% [Lidoderm Patch] 1 patch TOP DAILY PRN #10 patch PRN Reason: pain Comments: We will place you on Lidoderm patches for home. Please follow-up with your doctor for further care. Return if you worsen. Your prescription was sent to [facility] in [place]. CT scan results: IMPRESSION: 1.Mild enlargement of the left oblique muscle with surrounding infiltrative change, compatible with edema. Discharge Date/Time: 06/05/21 12:57
[2021-06-05] MEDS ORDERED: IOVERSOL 320 100 ML VIAL IVP ONE ×2 (10:59→16:54)
[2021-06-05 11:03] LABS: BASOPHILS % (AUTO) 0.4 %; EOSINOPHILS # (AUTO) 0.1 10^3/uL (0.0-0.7); EOSINOPHILS % (AUTO) 2.1 %; HCT - HEMATOCRIT 40.4 % (37.0-47.0); HGB - HEMOGLOBIN 13.5 g/dL (12.0-16.0); LYMPHOCYTES # (AUTO) 1.1 10^3/uL (1.5-3.5); LYMPHOCYTES % (AUTO) 22.4 %; MEAN CORPUSCULAR HEMOGLOBIN 30.1 pg (27.0-31.0); MEAN CORPUSCULAR HGB CONC 33.4 g/dL (32.0-36.0); MEAN PLATELET VOLUME 10.8 fL (7.9-10.8); MONOCYTES # (AUTO) 0.5 10^3/uL (0.0-1.0); MONOCYTES % (AUTO) 11.1 %; NEUTROPHILS % (AUTO) 63.8 %; PLT - PLATELET COUNT 197 10^3/uL (130-450); RED BLOOD COUNT 4.49 10^6/uL (4.20-5.40); RED CELL DISTRIBUTION WIDTH 14.5 % (12.0-15.0); WHITE BLOOD COUNT 4.8 x10^3/uL (4.8-10.8)
[2021-06-05 11:19] LABS: ALBUMIN 4.3 g/dL (3.2-5.5); ALBUMIN/GLOBULIN RATIO 1.7 (1.0-2.2); BILIRUBIN,TOTAL 0.9 mg/dL (0.2-1.0); CALCIUM 10.4 mg/dL (8.5-10.3); CREATININE 0.8 mg/dL (0.4-1.0); POTASSIUM 4.5 mmol/L (3.5-5.0); TOTAL PROTEIN 6.8 g/dL (6.7-8.2)
--- NOTE | 2021-06-05 12:15 | CT Report ---
PROCEDURE: Abdomen/Pelvis W INDICATIONS: Diffuse lower abdominal pain CONTRAST: IV CONTRAST: Optiray 320 ml: 80 PO CONTRAST: *NO PO CONTRAST TECHNIQUE: After the administration of IV contrast, 5 mm thick sections acquired from the diaphragms to the symp hysis. 5 mm thick coronal and sagittal reformats were acquired. For radiation dose reduction, the f ollowing was used: automated exposure control, adjustment of mA and/or kV according to patient size. COMPARISON: April 06, 2021. FINDINGS: Inferior chest: No focal consolidation, pleural effusion, or pneumothorax. Mild centrilobular emphys ematous change. No cardiomegaly or pericardial effusion. Gallbladder: Cholecystectomy. Biliary tree: Distention of the CBD, measuring up to 12 mm. Liver: The liver demonstrates normal enhancement, size, and contour. Spleen: Normal enhancement, size and morphology is seen. Pancreas: Normal morphology without masses or inflammatory changes. Adrenals: Normal size without masses. Kidneys/ureters: Normal size and morphology. No solid masses or hydronephrosis. 9 mm hypoattenuating lesion in the left renal pole, which may represent a cyst. Punctate right nephrolithiasis. Vasculature: No evidence of aneurysm or other significant vascular pathology. Lymphatic system: No pathologic enlargement by size criteria. GI/mesentery: No evidence of intestinal obstruction. The appendix is not visualized. Peritoneum/Retroperitoneum: No free intraperitoneal gas or large collection. Urinary bladder: The urinary bladder is distended with a smooth thin wall. Pelvic organs: The uterus appears surgically absent. Bones/soft tissues: Multifocal degenerative change with levocurvature of the lumbar spine. Mild enlargement of the left oblique muscle with surrounding infiltrative change. IMPRESSION: 1.Mild enlargement of the left oblique muscle with surrounding infiltrative change, compatible with e janet. Reviewed by: Ajay Swanson MD on 06/05/2021 12:13 PM PDT Approved by: Ajay Swanson MD on 06/05/2021 12:13 PM PDT Station ID: [id number]
[2021-06-05] MEDS ORDERED: KETOROLAC 30 MG/ML VIAL IVP STA (12:39)
[2021-06-05 12:58] VITALS: BP 158/73
== END 2021-06-05 12:57 | disposition home or self-care (01) ==
LOC: ED 09:50
DX: R10.32 Left lower quadrant pain (principal); R10.31 Right lower quadrant pain; R59.0 Localized enlarged lymph nodes; R91.8 Other nonspecific abnormal finding of lung field
CPT/HCPCS: 36415; 71250; 74177; 80053; 81003; 83690; 85025; 96374; 99284; Q9967; 81001; 87086

== ENCOUNTER 2022-01-25 08:00 | Outpatient (CLI) | payer MEDICARE, OTHER ==
--- NOTE | 2022-01-25 14:54 | XRAY Report ---
PROCEDURE: Shoulder 3 View LT INDICATIONS: LEFT SHOULDER PAIN TECHNIQUE: 3 views of the shoulder were acquired. COMPARISON: None. FINDINGS: Bones: No fractures or dislocations. No suspicious bony lesions. Visualized ribs appear intact. G eneralized decreased osseous mineralization present. Soft tissues: No suspicious soft tissue calcifications. IMPRESSION: Osteopenia without fracture or dislocation Reviewed by: Lyndon Stern MD on 01/25/2022 1:52 PM AKDT Approved by: Lyndon Stern MD on 01/25/2022 1:52 PM AKDT Station ID: [id number]
--- NOTE | 2022-01-25 14:55 | XRAY Report ---
PROCEDURE: Ankle 2 View BILAT INDICATIONS: BILATERAL ANKLE PAIN TECHNIQUE: 2 views of each ankle were obtained. COMPARISON: None FINDINGS: Bones: No fractures or dislocations. Ankle mortise is normally aligned. No suspicious bony lesions . Bilateral calcaneal spurs noted. Osteopenia Soft tissues: No tibiotalar joint effusion. Achilles tendon appears normal. IMPRESSION: Mild degenerative changes and osteopenia without fracture Reviewed by: Lyndon Stern MD on 01/25/2022 1:53 PM [id number] Approved by: Lyndon Stern MD on 01/25/2022 1:53 PM AKDT Station ID: [id number]
== END 2022-01-25 23:59 | disposition home or self-care (01) ==
LOC: DI.S 08:00
PROVIDERS: ATTEND Registered Nurse
DX: M19.072 Primary osteoarthritis, left ankle and foot (principal); M19.071 Primary osteoarthritis, right ankle and foot; M85.872 Other specified disorders of bone density and structure, left ankle and foot; M85.871 Other specified disorders of bone density and structure, right ankle and foot; M19.012 Primary osteoarthritis, left shoulder

== ENCOUNTER 2022-02-20 20:52 | Emergency (ER) | payer MEDICARE, OTHER ==
--- NOTE | 2022-02-20 21:09 | ED Physician Documentation ---
PD HPI Fall - Stated complaint Stated Complaint: FALL,HEAD LAC - Chief complaint Chief Complaint: General - Additional information Additional information: Patient is 86-year-old female presenting to the emergency department status post fall with head injury, neck, shoulder and hand pain. Reports was gardening earlier today, caught her shoe on one of the stone steps to her garden, stumbled forward and struck the right side of her head landing on her right shoulder. Past medical significant for chronic anticoagulation on Eliquis. Last dose this morning. Patient is uncertain why she takes Eliquis and when asked responds "because I had 2 or 3 things going on with my heart a few years ago". Denies loss of consciousness associated with the event. Currently reports mild headache but denies any fever, chills, chest pain, shortness of breath, abdominal pain, nausea, vomiting, diarrhea, constipation. Review of Systems Ten Systems: 10 systems reviewed and negative Constitutional: denies: Fever Ears: denies: Loss of hearing Nose: denies: Rhinorrhea / runny nose Throat: denies: Dental pain / toothache Cardiac: denies: Chest pain / pressure GI: denies: Abdominal Pain : denies: Dysuria Skin: denies: Rash PD PAST MEDICAL HISTORY - Past Medical History Cardiovascular: None Respiratory: None Neuro: None Endocrine/Autoimmune: None GI: None DIRECTOR OF COMMUNITY CENTER: None : None HEENT: None Psych: None Musculoskeletal: None Derm: None - Past Surgical History Past Surgical History: Yes General: Cholecystectomy, Appendectomy Ortho: Other /DIRECTOR OF COMMUNITY CENTER: Hysterectomy HEENT: Tonsil/Adenoidectomy - Present Medications Home Medications: Ambulatory Orders Medication Instructions Recorded Confirmed Lidocaine Patch 5% [Lidoderm Patch] 1 patch TOP DAILY PRN #10 patch 06/05/21 Apixaban [Eliquis] 2.5 mg ORAL DAILY 02/20/22 02/20/22 - Allergies Allergies/Adverse Reactions: Allergies Allergy/AdvReac Type Severity Reaction Status Date / Time aspirin Allergy Severe throat pain Verified 02/20/22 21:03 - Social History Does the pt smoke?: No Smoking Status: Never smoker Does the pt drink ETOH?: No Does the pt have substance abuse?: No - Immunizations Immunizations are current?: Yes - POLST Patient has POLST: No PD ED PE NORMAL - Vitals Vital signs reviewed: Yes - General General: Alert and oriented X 3, No acute distress, Other (Elderly, frail) - HEENT HEENT: Other (There is a prominent 3 cm x 4 cm hematoma overlying the right frontal scalp.) - Neck Neck: Supple, no meningeal sign, No bony TTP, Other - Cardiac Cardiac: RRR - Respiratory Respiratory: No respiratory distress, Clear bilaterally - Abdomen Abdomen: Normal bowel sounds - Female Female : Deferred - Rectal Rectal: Deferred - Back Back: No spinal TTP - Derm Derm: Normal color - Extremities Extremities: Other (Soft tissue swelling and tenderness to palpation the right distal fifth phalanx. Radial and ulnar pulses palpable. Normal and full range of flexion and extension in all other digits. Normal flexion, extension, radial and ulnar deviation to the wrist. No tenderness to palpation or decreased range) Results - Vitals Vitals: Vital Signs - 24 hr 02/20/22 02/20/22 20:57 21:00 Temperature 36.3 C L Heart Rate 69 80 Respiratory 18 16 Rate Blood Pressure 169/77 H 169/73 H O2 Saturation 98 98 Oxygen O2 Source Room air PD MEDICAL DECISION MAKING - ED course Complexity details: reviewed results, re-evaluated patient, d/w patient ED course: Patient is 86-year-old female on Eliquis presenting to the emergency department after mechanical fall with scalp hematoma. Afebrile, hematin stable on arrival to the emergency department. No reported loss of consciousness and patient had a nonfocal nonlateralizing neurologic exam. Exam did demonstrate prominent right frontal scalp hematoma as well as some tenderness and swelling to palpation at the distal aspect of the right fifth digit. No other significant traumatic injuries were appreciated. I did obtain comprehensive imaging which included CTs of the head, C-spine, maxillofacial area which were all negative for acute fracture or acute pathology. X-rays of the hand were also negative for fracture or dislocation. Patient was given Tylenol in the emergency department and tolerated this medication well as well as some p.o. fluids. At this time I will discharge for follow-up with primary care as needed. Clear return precautions and follow-up instructions were given prior to discharge. Departure - Departure Disposition: 01 Home, Self Care Clinical Impression: Fall, Scalp hematoma, Finger sprain Instructions: ED Hematoma, ED Sprain Finger Comments: Thank you for allowing us to care for you today [facility]. Today in the emergency department you were evaluated for any possible life-threatening medical emergency. You do have a very prominent hematoma, a form of large bruise, over your right scalp however the CT scans performed of your head and neck did not show any injury to the brain, nor did it show any fractures or other significant traumatic injuries. The hematoma you have over your scalp will heal over the next several weeks however it is very likely that you may experience some discoloration possibly under your right eye or along the right side of your face as the blood begins to resorb. I do recommend ice packs particularly for the next few days to this area. The x-rays of your right finger did not show any fracture or dislocation. I recommend ice packs for this as well. Tylenol is an excellent medication for pain control and you can take 650 mg every 6 hours as needed as long as you do not exceed a total of 3 to 4 g in a 24-hour period. Please make a follow-up appoint with your primary care doctor soon as possible. If it anytime you have any new or worsening symptoms please not hesitate to return to the emergency department.
[2022-02-20] MEDS ORDERED: ACETAMINOPHEN 325 MG TABLET PO STA (21:11)
--- NOTE | 2022-02-20 21:52 | CT Report ---
PROCEDURE: HEAD WO INDICATIONS: trauma TECHNIQUE: Noncontrast 5 mm thick angled axial sections acquired from the foramen magnum to the vertex. For rad iation dose reduction, the following was used: automated exposure control, adjustment of mA and/or k V according to patient size. COMPARISON: 12/05/2018. FINDINGS: Image quality: Excellent. CSF spaces: Basal cisterns are patent. No extra-axial fluid collections. Ventricles are normal in size and shape. Brain: No intracranial hemorrhage, mass, or mass effect. Camargo-white matter interface appears preser santa. Skull and face: There is right supraorbital soft tissue swelling and a subcutaneous hematoma. An ass ociated soft tissue laceration is also demonstrated. Calvarium and visualized facial bones are intact , without suspicious lesions. Globes appear intact. Sinuses: Visualized sinuses and mastoids are clear. IMPRESSION: 1. No acute intracranial abnormality. 2. Right supraorbital soft tissue swelling with a subcutaneous hematoma and soft tissue laceration. N o associated fractures identified. Reviewed by: Cristofer Perez MD on 02/20/2022 9:51 PM PDT Approved by: Cristofer Perez MD on 02/20/2022 9:51 PM PDT Station ID: [id number]
--- NOTE | 2022-02-20 22:08 | CT Report ---
PROCEDURE: CERVICAL SPINE WO INDICATIONS: trauma TECHNIQUE: Noncontrast 3 mm thick sections acquired from the skull base to the T4 level. Sagittal and coronal r eformats were then constructed. For radiation dose reduction, the following was used: automated exp osure control, adjustment of mA and/or kV according to patient size. COMPARISON: None. FINDINGS: Image quality: Excellent. Bones: No fractures or subluxation. There is multilevel moderate degenerative disc disease and facet arthropathy. Visualized superior ribs are intact. Soft tissues: Prevertebral soft tissues are normal in thickness. No paravertebral hematomas. No ap ical pneumothoraces. IMPRESSION: 1. No fracture or subluxation. 2. Multilevel moderate degenerative disc disease and facet arthropathy. Reviewed by: Cristofer Perez MD on 02/20/2022 10:06 PM PDT Approved by: Cristofer Perez MD on 02/20/2022 10:06 PM PDT Station ID: [id number]
--- NOTE | 2022-02-20 22:09 | CT Report ---
PROCEDURE: MAXILLOFACIAL WO INDICATIONS: trauma TECHNIQUE: Noncontrast 1.5 mm thick axial images acquired from the mandible through the frontal sinuses, with co baljit and sagittal reformatting. For radiation dose reduction, the following was used: automated ex posure control, adjustment of mA and/or kV according to patient size. COMPARISON: None. FINDINGS: Image quality: Excellent. Bones and teeth: Orbital longo are intact. Sinus longo show no fracture or deformity. Nasal bones and septum are intact. Visualized portions of the mandible demonstrate no fractures or subluxation. Zygomatic arches are intact. Pterygoid plates are intact. Visualized portions of the skull base an d auditory canals are intact. Sinuses: Paranasal sinuses demonstrate mild mucosal thickening within the ethmoid sinuses. Mastoid a ir cells are aerated. Soft tissues: There is right supraorbital soft tissue swelling with a subcutaneous hematoma. The glob es are intact. No retrobulbar fluid collections within the orbits. Vascular: Visualized vascular structures appear normal in the absence of contrast. Bony vascular fo ramina and canals are intact. IMPRESSION: 1. No facial bone fractures identified. 2. Right supraorbital soft tissue swelling with a subcutaneous hematoma. Reviewed by: Cristofer Perez MD on 02/20/2022 10:08 PM PDT Approved by: Cristofer Perez MD on 02/20/2022 10:08 PM PDT Station ID: [id number]
--- NOTE | 2022-02-20 22:12 | XRAY Report ---
PROCEDURE: Finger(s) RT INDICATIONS: 5th finger pain/swelling TECHNIQUE: AP hand, 2 views of the fifth digit acquired. COMPARISON: None. FINDINGS: Bones: No fractures or dislocations. 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 No suspicious bony lesions. Soft tissues: There is diffuse soft tissue swelling of No suspicious soft tissue calcifications. IMPRESSION: 1. No fracture or dislocation. Reviewed by: Cristofer Perez MD on 02/20/2022 10:10 PM PDT Approved by: Cristofer Perez MD on 02/20/2022 10:10 PM PDT Station ID: [id number]
[2022-02-20 22:26] VITALS: BP 153/75
== END 2022-02-20 22:39 | disposition home or self-care (01) ==
LOC: ED 20:52
DX: S00.03XA Contusion of scalp, initial encounter (principal); S63.616A Unspecified sprain of right little finger, initial encounter; W01.0XXA Fall on same level from slipping, tripping and stumbling without subsequent striking against object, initial encounter; Y93.H2 Activity, gardening and landscaping; Y92.007 Garden or yard of unspecified non-institutional (private) residence as the place of occurrence of the external cause; Z79.01 Long term (current) use of anticoagulants
CPT/HCPCS: 36415; 70450; 70486; 72125; 73140; 99282; 99283; A9270

== ENCOUNTER 2022-06-20 08:00 | Outpatient (CLI) | payer MEDICARE, OTHER | END 2022-06-20 23:59 | disposition home or self-care (01) | LOC: LAB.S 08:00 | PROVIDERS: ATTEND Physician Assistant | DX: R30.0 Dysuria (principal) | CPT/HCPCS: 87086 ==

== ENCOUNTER 2022-07-22 12:35 | Emergency (ER) | payer MEDICARE, OTHER ==
[2022-07-22 13:21] LABS: BASOPHILS % (AUTO) 0.3 %; EOSINOPHILS # (AUTO) 0.1 10^3/uL (0.0-0.7); EOSINOPHILS % (AUTO) 0.7 %; HCT - HEMATOCRIT 43.1 % (37.0-47.0); HGB - HEMOGLOBIN 14.1 g/dL (12.0-16.0); LYMPHOCYTES # (AUTO) 0.8 10^3/uL (1.5-3.5); LYMPHOCYTES % (AUTO) 12.4 %; MEAN CORPUSCULAR HEMOGLOBIN 28.8 pg (27.0-31.0); MEAN CORPUSCULAR HGB CONC 32.7 g/dL (32.0-36.0); MEAN CORPUSCULAR VOLUME 88.1 fL (81.0-99.0); MONOCYTES # (AUTO) 0.8 10^3/uL (0.0-1.0); MONOCYTES % (AUTO) 12.3 %; PLT - PLATELET COUNT 199 10^3/uL (130-450); RED BLOOD COUNT 4.89 10^6/uL (4.20-5.40); RED CELL DISTRIBUTION WIDTH 15.7 % (12.0-15.0); WHITE BLOOD COUNT 6.8 x10^3/uL (4.8-10.8)
[2022-07-22 13:37] LABS: ALBUMIN 3.7 g/dL (3.2-5.5); ALBUMIN/GLOBULIN RATIO 1.2 (1.0-2.2); BILIRUBIN,TOTAL 0.7 mg/dL (0.2-1.0); CALCIUM 9.7 mg/dL (8.5-10.3); CREATININE 1.3 mg/dL (0.4-1.0); POTASSIUM 4.4 mmol/L (3.5-5.0); TOTAL PROTEIN 6.8 g/dL (6.7-8.2)
[2022-07-22] MEDS ORDERED: SODIUM CHLORIDE 0.9% 500 ML IV STA (14:43)
[2022-07-22] MEDS ORDERED: iohexoL-300 100 ML VIAL ONE (14:58)
--- NOTE | 2022-07-22 15:03 | ED Physician Documentation ---
PD HPI ABD PAIN - Stated complaint Stated Complaint: ABD PX - Chief complaint Chief Complaint: Abd Pain - History obtained from History obtained from: Patient - Additional information Additional information: Patient is an 86-year-old female presenting for evaluation of burning lower abdominal painThat has been present for 4 months. She is unsure of any exacerbating or alleviating factors.She denies associated nausea, vomiting or diarrhea. She does have a history of A. 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 She tried to make an appointment last week but it was a televisit and she did not feel that they were addressing her concerns. She denies dysuria, bloody stools. Review of Systems Constitutional: denies: Fever Nose: denies: Congestion Cardiac: denies: Chest pain / pressure Respiratory: denies: Dyspnea GI: reports: Abdominal Pain. denies: Vomiting, Diarrhea : denies: Dysuria Musculoskeletal: denies: Back pain Neurologic: denies: Headache PD PAST MEDICAL HISTORY - Past Medical History Cardiovascular: None Respiratory: None Neuro: None Endocrine/Autoimmune: None GI: None TELETRAY OPERATOR: None : None HEENT: None Psych: None Musculoskeletal: None Derm: None - Past Surgical History Past Surgical History: Yes General: Cholecystectomy, Appendectomy Ortho: Other /TELETRAY OPERATOR: Hysterectomy HEENT: Tonsil/Adenoidectomy - Present Medications Home Medications: Ambulatory Orders Medication Instructions Recorded Confirmed Lidocaine Patch 5% [Lidoderm Patch] 1 patch TOP DAILY PRN #10 patch 06/05/21 Apixaban [Eliquis] 2.5 mg ORAL DAILY 02/20/22 02/20/22 - Allergies Allergies/Adverse Reactions: Allergies Allergy/AdvReac Type Severity Reaction Status Date / Time aspirin Allergy Severe throat pain Verified 07/22/22 12:45 - Social History Does the pt smoke?: No Smoking Status: Never smoker Does the pt drink ETOH?: No Does the pt have substance abuse?: No - Immunizations Immunizations are current?: Yes - POLST Patient has POLST: No PD ED PE NORMAL - General General: Alert and oriented X 3, No acute distress, Well developed/nourished - HEENT HEENT: Atraumatic - Neck Neck: Supple, no meningeal sign - Cardiac Cardiac: Other (Irregularly irregular) - Respiratory Respiratory: No respiratory distress, Clear bilaterally - Abdomen Abdomen: Normal bowel sounds, Soft, Non tender, Non distended - Derm Derm: Warm and dry - Extremities Extremities: No edema - Neuro Neuro: Normal speech Results - Vitals Vitals: Vital Signs - 24 hr 07/22/22 07/22/22 12:45 16:05 Temperature 36.7 C 36.5 C Heart Rate 99 97 Respiratory 16 16 Rate Blood Pressure 121/73 145/75 H O2 Saturation 94 98 Oxygen O2 Source Room air - Labs Labs: Laboratory Tests 07/22/22 07/22/22 07/22/22 13:15 13:15 15:21 WBC 6.8 RBC 4.89 Hgb 14.1 Hct 43.1 MCV 88.1 MCH 28.8 MCHC 32.7 RDW 15.7 H Plt Count 199 MPV 11.0 H Neut # (Auto) 5.0 Lymph # (Auto) 0.8 L [place]cher # (Auto) 0.8 Eos # (Auto) 0.1 Baso # (Auto) 0.0 Absolute Nucleated RBC 0.00 Nucleated RBC % 0.0 Sodium 142 Potassium 4.4 Chloride 107 Carbon Dioxide 26 Anion Gap 9.0 BUN 31 H Creatinine 1.3 H Estimated GFR (MDRD) 39 L Glucose 125 H Calcium 9.7 Total Bilirubin 0.7 AST 24 ALT 24 Alkaline Phosphatase 58 Total Protein 6.8 Albumin 3.7 Globulin 3.1 Albumin/Globulin Ratio 1.2 Lipase 42 Urine Color YELLOW Urine Clarity CLEAR Urine pH 6.0 Ur Specific [place] 1.020 Urine Protein NEGATIVE Urine Glucose (UA) NEGATIVE Urine Ketones NEGATIVE Urine Occult Blood TRACE-INTA Urine Nitrite NEGATIVE Urine Bilirubin NEGATIVE Urine Urobilinogen 0.2 (NORMAL) Ur Leukocyte Esterase NEGATIVE Ur Microscopic Review NOT INDICATED Urine Culture Comments NOT INDICATED PD MEDICAL DECISION MAKING - ED course Complexity details: reviewed results, re-evaluated patient, d/w patient ED course: Patient presenting for evaluation of lower abdominal pain that has been present for 4 months.Her abdominal exam appears benign here. Her labs are reviewed. Her creatinine is slightly elevated from her baseline and she was given IV fluids. Her CT scan is unrevealing. Patient recently has seen a GI doctor. She does not currently have a PCP so we will give her information on one. At this time the etiology of her abdominal pain is unclear but does not appear to be life-threatening. Patient counseled on strict return precautions for any new or worsening symptoms. Departure - Departure Disposition: 01 Home, Self Care Clinical Impression: Abdominal pain Condition: Stable Instructions: ED Abdominal Pain Female Non-Specific Abdominal Pain Follow-Up: Forrest Bal MD [Provider Admit Priv/Credential] - Comments: You were evaluated for abdominal pain. Your labs are reassuring and your CT scan does not show any new abnormalities. Please have close follow-up with your primary care doctor. As you do not have 1 I have listed information for one that you can contact tomorrow to establish care with. It looks like you were also seen by a GI doctor through [facility] And I do think it would be worth to get a follow-up appointment to continue to discuss your symptoms as you may need further testing.If you have any worsening symptoms such as vomiting, diarrhea, increased pain or have any concerns please return to the emergency department.
[2022-07-22 15:44] LABS: BILIRUBIN,URINE NEGATIVE (NEGATIVE); GLUCOSE, URINE (UA) NEGATIVE (NEGATIVE); KETONES,URINE (UA) NEGATIVE (NEGATIVE); LEUKOCYTE ESTERASE, URINE NEGATIVE (NEGATIVE); NITRITE,URINE NEGATIVE (NEGATIVE); OCCULT BLOOD,URINE TRACE-INTA (NEGATIVE); PROTEIN,URINE NEGATIVE (NEGATIVE); UROBILINOGEN,URINE 0.2 (NORMAL) E.U./dL (NORMAL)
[2022-07-22 15:45] LABS: CLARITY,URINE CLEAR (CLEAR)
[2022-07-22] MEDS ORDERED: iohexoL-300 100 ML VIAL IVP ONE (17:36)
--- NOTE | 2022-07-22 17:42 | CT Report ---
PROCEDURE: ABDOMEN/PELVIS W INDICATIONS: lower abd pain CONTRAST: 100ml Omnipaque 300 TECHNIQUE: After the administration of IV contrast, 5 mm thick sections acquired from the diaphragms to the symp hysis. 5 mm thick coronal and sagittal reformats were acquired. For radiation dose reduction, the f ollowing was used: automated exposure control, adjustment of mA and/or kV according to patient size. COMPARISON: 06/05/2021 FINDINGS: Image quality: Excellent. ABDOMEN: Lung bases: Lung bases are clear. Heart size is normal. Solid organs: Liver and spleen are normal in size and enhancement. Gallbladder is surgically absent . The intrahepatic biliary tree is mildly dilated. The extrahepatic common duct is chronically diffus holly dilated up to 1.4 cm. No obstructing calcifications. The pancreatic duct is also smooth and mildl y prominent. Pancreas enhances normally. No adrenal nodules. Normal enhancement of both kidneys. Mild right lower pole hydronephrosis without hydroureter. No visible calculi. Peritoneum and bowel: Bowel loops demonstrate normal wall thickness and caliber. No free fluid or a ir. No small bowel obstruction. Normal quantity of stool present. Nodes and vessels: No retroperitoneal or mesenteric adenopathy by size criteria. Aorta and inferior vena cava are normal in size. Miscellaneous: No ventral hernias. PELVIS: Genitourinary: Bladder wall thickness is normal. The uterus is absent. Miscellaneous: No inguinal hernias or adenopathy. Bones: No suspicious bony lesions. Dextroscoliosis. Moderate degeneration at the pubic symphysis. Mi ld sacroiliac joint degeneration No vertebral body compression fractures. IMPRESSION: 1. No acute process. 2. Chronic intra and extrahepatic biliary dilatation post cholecystectomy. Correlate with LFTs. Reviewed by: Lyndsey Davison MD on 07/22/2022 5:41 PM PST Approved by: Lyndsey Davison MD on 07/22/2022 5:41 PM PST Station ID: [id number]
[2022-07-22 18:18] VITALS: BP 136/60
== END 2022-07-22 18:20 | disposition home or self-care (01) ==
LOC: ED 12:35
DX: R10.30 Lower abdominal pain, unspecified (principal); I48.91 Unspecified atrial fibrillation; Z79.01 Long term (current) use of anticoagulants
CPT/HCPCS: 36415; 74177; 80053; 81003; 83690; 85025; 96360; 99282; 99284; Q9967; 81001; 87086

== ENCOUNTER 2022-10-22 15:44 | Outpatient (CLI) | payer MEDICARE, OTHER ==
--- NOTE | 2022-10-22 18:51 | XRAY Report ---
PROCEDURE: Hand 3 View RT INDICATIONS: RIGHT HAND PAIN TECHNIQUE: 3 views of the hand(s) acquired. COMPARISON: X-ray fingers 02/20/2022 FINDINGS: Bones: No fractures or dislocations. No suspicious bony lesions. There is moderate to severe IP as well as first CMC degenerative narrowing. Is most severe at the DIP joints notably the fifth. Partic ular osteophytes are present. No definitive erosions are identified. Radiocarpal narrowing is also pr esent as well as triscaphe degenerative narrowing. Soft tissues: No suspicious soft tissue calcifications. IMPRESSION: Diffuse arthritic changes as above. Reviewed by: Darline Russo MD on 10/22/2022 6:49 PM PDT Approved by: Darline Russo MD on 10/22/2022 6:49 PM PDT Station ID: [id number]
== END 2022-10-22 15:45 | disposition home or self-care (01) ==
LOC: DI.S 15:44
PROVIDERS: ATTEND Nurse Practitioner
DX: M19.041 Primary osteoarthritis, right hand (principal); M18.11 Unilateral primary osteoarthritis of first carpometacarpal joint, right hand

== ENCOUNTER 2023-02-02 13:02 | Outpatient (CLI) | payer MEDICARE, OTHER ==
--- NOTE | 2023-02-03 08:00 | SLEEP CARE CONSULTATION ---
Information from patient questionnaire entered by Arcelia Gomez. I have reviewed and concur with the information entered by Arcelia Gomez. This document represents the service I personally performed and the decisions made by me, Marnie Sandoval MD, [facility]. History of Present Illness Service Date and Time: 02/02/2023 1302 Reason for Visit: New patient Chief Complaint: reports: Unrefreshed sleep, Fatigue Date of Onset: 3YRS GETTING WORSE Snores at night: Yes Observed to quit breathing while asleep: No Sleeps alone due to snoring: No Number of times waking at night: 1-2 Reasons for waking at night: reports: Bathroom Toss, Turn, or Twitch while sleeping: No Recalls having dreams: No Usually gets out of bed at: 0300 Feels refreshed in the morning: No Morning headache: Yes Sleepy or fatigued during the day: Yes Ever fallen asleep while driving: No Takes day naps: Yes Dreams during day naps: No Prior sleep studies: No Additional HPI information: I have the pleasure of seeing Ms. Campbell today regarding the possibility of her having obstructive sleep apnea. As you know, she is an 87-year-old lady who complains of fatigue for the past 2 years. She said she had a cardiac event and since then has been feeling tired. She is taking Eliquis. She has metoprolol to take as needed. She only took it once or twice. She thinks she sleeps fine. The patient tells me that she normally goes to bed around 11 pm, and it does not take her long to fall asleep. She has not been told that she snores loudly or irregularly at night. She has never been observed to stop breathing in her sleep. Her sleeps in a separate room. She can recall waking up on the average of 1 - 2 times during the night. Most of the time she wakes up because of having to use the bathroom. She has never awakened because of her own snoring, choking, or having to gasp for air. There is not a lot of tossing and turning in her sleep. No somniloquy (sleep talking) or somnambulism (sleep walking). Generally, there is no recollection of dreams. In the morning she usually gets up out of the bed around 8 a.m. not feeling refreshed nor rested. She usually does not have a morning headache. During the day she complains of feeling fatigued but not sleepy. Her score on [place] Sleepiness Scale is 4 out of 24. She never has fallen asleep while driving nor has had any accident due to sleepiness. She usually takes naps during the day. She denies having impaired concentration during the day. - Parasomnia Symptoms Ever been unable to move upon waking from sleep: No Walks in sleep: No Talks in sleep: No Ever acted out dreams in sleep: No Ever felt weak in the knees when startled or emotional: No Bothered by creepy, crawly, restless sensations in legs: No Problems with memory or concentration: Yes Subjective Initial [place] Sleepiness Scale score: 4 (02/02/23) Past Medical History Past Medical History: reports: Diabetes, Fibromyalgia, GERD Social History The patient's occupation is a RETIRED. Patient is and lives in [place]. Have you smoked in the past 12 months: No Alcohol use: No Caffeine use: No Family History Family history of sleep disordered breathing: No Allergies and Home Medications Known drug allergies: Yes (ASPIRIN) Drug allergies reviewed: Yes Home medication list reviewed: Yes Allergy and home medication list: Allergies aspirin Allergy (Severe, Verified 07/22/22 12:45) throat pain Review of Systems Cardiovascular: reports: other (CHRONIC FATIGUE) Respiratory: denies: shortness of breath, wheeze, sputum production, chronic cough, other Gastrointestinal: denies: heartburn, difficulty swallowing, nausea, vomitting, diarrhea, abdominal pain, other Urinary: reports: incontinence, urgency Neurological: denies: headaches, seizure, head trauma, disorientation, speech dysfunction, gait or balance problems, fainting or unconsciousness, other Psychiatric: denies: Attention Deficit Hyperactivity, anxiety, depression, mood disorder, claustrophobia, other Ear/Nose/Throat: reports: tonsillectomy, wisdom teeth removed Endocrine: reports: sluggishness Musculoskeletal: reports: muscle pain or cramping Immunologic: denies: sneezing, rash, itching, allergies to food or environment, other Physical Exam Vital signs obtained and entered by: ARCELIA Mancuso MA Blood Pressure: 128/72 (LEFT ARM) Cuff size: regular Heart Rate: 71 O2 Saturation: 97 Height: 4 ft 10 in Weight: 100 lb 6.4 oz Body Mass Index: 20.9 BMI Classification: Normal Neck circumference: 13.25 Mood/affect: Normal HEENT: No craniofacial malformation Nostrils: patent to airflow Turbinates: normal Septum: midline Mouth and throat: normal Soft palate: normal Hard palate: normal Uvula: normal Uvula visualization: 100% Mallampati Class I Tongue: normal in size Tonsils: absent bilaterally Chin and jaw: normal size and position Neck: normal w/o lymphadenopathy or thyromegaly Heart: regular rate and rhythm Lungs: clear bilaterally Extremities: 1+ edema Neurologic: intact Impression and Plan IMPRESSION: 1. Fatigue, without excessive daytime sleepiness. I explained to her that the complaint can be from multiple etiologies. Cardiac arrhythmias and beta-blockers can cause fatigue. She appears to be under a lot of stress from having tinnitus. She agrees to have an in-laboratory polysomnography to rule out sleep disrupting conditions such as sleep apnea. Plan: 1. Schedule polysomnography. 2. Return for follow up after the sleep study. Follow up with Sleep Care in: 1-2 months Plan: in-lab PSG Visit Type: In Office Time Spent with Patient (minutes): 15 Provider Statement: I spent 100% of the Face to Face Visit with the patient with greater than 50% spent counseling the patient and coordination of care.
[2023-02-03 08:05] VITALS: BP 128/72
== END 2023-02-02 13:03 | disposition home or self-care (01) ==
LOC: SC 13:02
PROVIDERS: ATTEND Internal Medicine Pulmonary Disease
DX: R53.83 Other fatigue (principal); R41.89 Other symptoms and signs involving cognitive functions and awareness; G47.8 Other sleep disorders; I49.9 Cardiac arrhythmia, unspecified
CPT/HCPCS: 99202; G0463; 99212

== ENCOUNTER 2023-02-21 14:08 | Emergency (ER) | payer MEDICARE, OTHER ==
[2023-02-21 15:11] LABS: BASOPHILS % (AUTO) 0.7 %; EOSINOPHILS # (AUTO) 0.1 10^3/uL (0.0-0.7); EOSINOPHILS % (AUTO) 1.4 %; HCT - HEMATOCRIT 38.9 % (37.0-47.0); HGB - HEMOGLOBIN 12.6 g/dL (12.0-16.0); LYMPHOCYTES # (AUTO) 1.1 10^3/uL (1.5-3.5); LYMPHOCYTES % (AUTO) 19.5 %; MEAN CORPUSCULAR HEMOGLOBIN 28.8 pg (27.0-31.0); MEAN CORPUSCULAR HGB CONC 32.4 g/dL (32.0-36.0); MEAN PLATELET VOLUME 10.6 fL (7.9-10.8); MONOCYTES # (AUTO) 0.8 10^3/uL (0.0-1.0); MONOCYTES % (AUTO) 14.5 %; NEUTROPHILS # (AUTO) 3.6 10^3/uL (1.5-6.6); NEUTROPHILS % (AUTO) 63.7 %; PLT - PLATELET COUNT 177 10^3/uL (130-450); RED BLOOD COUNT 4.37 10^6/uL (4.20-5.40); RED CELL DISTRIBUTION WIDTH 14.6 % (12.0-15.0); WHITE BLOOD COUNT 5.6 x10^3/uL (4.8-10.8)
[2023-02-21 15:22] LABS: ALBUMIN 3.8 g/dL (3.2-5.5); ALBUMIN/GLOBULIN RATIO 1.3 (1.0-2.2); BILIRUBIN,TOTAL 0.7 mg/dL (0.2-1.0); CREATININE 0.9 mg/dL (0.4-1.0); POTASSIUM 4.6 mmol/L (3.5-5.0); TOTAL PROTEIN 6.7 g/dL (6.7-8.2)
[2023-02-21 15:31] LABS: INR 1.1 (0.8-1.2); PT - PROTHROMBIN TIME 11.6 secs (9.9-12.6)
--- NOTE | 2023-02-21 16:43 | ED Physician Documentation ---
History of Present Illness - Stated complaint Stated Complaint: DOUBLE VISION - Chief complaint Chief Complaint: Neuro - Additonal information Additional information: 87-year-old female presents to the emergency department for evaluation of b inocular diplopia. States that she was driving yesterday about 1130 when she began to notice double vision. She felt that the double vision was occurring in her right eye. When she closes her left eye the double vision goes away. It has persisted now through the night and into today. Went to a walk-in clinic where she was advised to come to the ER. The patient is a very poor historian. States that about 5 years ago she was treated for a TIA. She does have a history of A-fib for which she is anticoagulated on Eliquis. However she thinks that she may have had some type of aneurysm several years ago she is unsure what or where that aneurysm was. She denies headache, any recent falls or trauma or fevers. No nausea or vomiting. Denying chest pain or shortness of air. She denies any eye pain. Review of Systems Eyes: reports: Other (Double vision) Ears: reports: Reviewed and negative Nose: reports: Reviewed and negative Throat: reports: Reviewed and negative Cardiac: reports: Reviewed and negative Respiratory: reports: Reviewed and negative GI: reports: Reviewed and negative : reports: Reviewed and negative Skin: reports: Reviewed and negative Neurologic: denies: Numbness, Difficulty speaking, Near syncope, Confused, Altered mental status, Headache, Head injury, LOC PD PAST MEDICAL HISTORY - Past Medical History Cardiovascular: None Respiratory: None Neuro: None Endocrine/Autoimmune: None GI: None STATISTICS INTERN: None : None HEENT: None Psych: None Musculoskeletal: None Derm: None - Past Surgical History Past Surgical History: Yes General: Cholecystectomy, Appendectomy Ortho: Other /STATISTICS INTERN: Hysterectomy HEENT: Tonsil/Adenoidectomy - Present Medications Home Medications: Ambulatory Orders Medication Instructions Recorded Confirmed Lidocaine Patch 5% [Lidoderm Patch] 1 patch TOP DAILY PRN #10 patch 06/05/21 02/02/23 Apixaban [Eliquis] 2.5 mg ORAL DAILY 02/20/22 02/02/23 - Allergies Allergies/Adverse Reactions: Allergies Allergy/AdvReac Type Severity Reaction Status Date / Time aspirin Allergy Severe throat pain Verified 02/21/23 14:19 - Social History Does the pt smoke?: No Smoking Status: Never smoker Does the pt drink ETOH?: No Does the pt have substance abuse?: No - Immunizations Immunizations are current?: Yes - POLST Patient has POLST: No PD ED PE NORMAL - General General: Alert and oriented X 3, No acute distress, Well developed/nourished - HEENT HEENT: Moist mucous membranes, Other (Extraocular movements are preserved in all 6 cardinal ranges. No loss of vision noted. 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 Relevant findings are: Rate: Rate (enter#) (60) Rhythm: NSR [place]: Normal Intervals: Normal IA QRS: Normal Ischemia: Normal ST segments Compare to prior EKG: Old EKG unavailable Computer interpretation: Agree with computer - Labs Labs: Laboratory Tests 02/21/23 02/21/23 02/21/23 14:55 15:06 15:06 WBC 5.6 RBC 4.37 Hgb 12.6 Hct 38.9 MCV 89.0 MCH 28.8 MCHC 32.4 RDW 14.6 Plt Count 177 MPV 10.6 Neut # (Auto) 3.6 Lymph # (Auto) 1.1 L [place] # (Auto) 0.8 Eos # (Auto) 0.1 Baso # (Auto) 0.0 Absolute Nucleated RBC 0.00 Nucleated RBC % 0.0 PT 11.6 INR 1.1 Sodium Potassium Chloride Carbon Dioxide Anion Gap BUN Creatinine Estimated GFR (MDRD) Glucose Estimat Average Glucose Hemoglobin A1c % Calcium Total Bilirubin AST ALT Alkaline Phosphatase Total Protein Albumin Globulin Albumin/Globulin Ratio Triglycerides Cholesterol LDL Cholesterol, Calc VLDL Cholesterol HDL Cholesterol LDL/HDL Ratio Cholesterol/HDL Ratio Lipase TSH 1.60 Free T4 0.87 02/21/23 02/21/23 02/21/23 15:06 15:06 15:06 WBC RBC Hgb Hct MCV MCH MCHC RDW Plt Count MPV Neut # (Auto) Lymph # (Auto) [place] # (Auto) Eos # (Auto) Baso # (Auto) Absolute Nucleated RBC Nucleated RBC % PT INR Sodium 138 Potassium 4.6 Chloride 104 Carbon Dioxide 27 Anion Gap 7.0 BUN 30 H Creatinine 0.9 Estimated GFR (MDRD) 59 L Glucose 164 H Estimat Average Glucose 131 H Hemoglobin A1c % 6.2 H Calcium 9.0 Total Bilirubin 0.7 AST 21 ALT 22 Alkaline Phosphatase 54 Total Protein 6.7 Albumin 3.8 Globulin 2.9 Albumin/Globulin Ratio 1.3 Triglycerides 79 Cholesterol 154 LDL Cholesterol, Calc 60 VLDL Cholesterol 16 HDL Cholesterol 78 LDL/HDL Ratio 0.8 Cholesterol/HDL Ratio 2.0 Lipase 41 TSH Free T4 - Rads (name of study) angio neck Relevant Findings:: Final report received (Negative CT angiogram of the neck arterial vasculature. No hemodynamically significant stenosis.) angio head Relevant Findings:: Final report received (CT head without acute intracranial abnormalities. Negative CT angiogram of the intracranial arterial vasculature. Atherosclerosis. No hemodynamically significant stenosis. Age-related sentient changes) PD Medical Decision Making - ED course Complexity details: reviewed results, re-evaluated patient, considered differential, d/w patient ED course: 87-year-old female who has a previous history of TIA as well as atrial fibrillation anticoagulated on Eliquis presents the emergency department for evaluation of binocular diplopia that began yesterday afternoon and about [address]. It has been persistent and unabating. It improves when she closes either eye. She has no loss of visual see. No headaches. Here in the emergency department we did obtain an EKG which showed the patient to be in sinus rhythm. There were no ischemic changes. I did obtain CBC, PT/INR and electrolytes. Per my interpretation the only acute finding is that of mild hyperglycemia with a blood glucose of 164. On examination the patient reports persistent diplopia but with the cranial nerve exam there was no findings of palsy with extraocular movement in any of the 6 cardinal directions. Subsequently a CT angio of the head and neck was completed and per radiology interpretation no acute findings to suggest aneurysm, stenosis or occlusion. Subsequently I did speak with [facility] neurologist Dr. Swanson at 1840: He feels that the persistent just below bushra is likely a sign of a tiny small vessel occlusion and would recommend MRI of the brain. He does feel that an echocardiogram should be completed likely as an outpatient since is not available over the weekend and he feels that it is safe. Other etiologies for consideration of the binocular diplopia include a peripheral cranial nerve palsy though this was not evident on extraocular exam. He would recommend nonfasting lipids and hemoglobin A1c for further evaluation of risk factors. He would recommend however permissive hypertension in the setting for concern of small vessel occlusion I have ordered the MRI of the brain which is pending at this time. 1927: I been notified by the chief medical technologist that MRI could not be completed. The patient became too anxious and" flipped out. Therefore the MRI was abated. I will reach back out to Dr. Swanson at [facility] with neurology 0: I did speak again with Dr. Swanson. He does feel that the binocular diplopia does need to have a completed stroke work-up over the course of the weekend and recommends we attempt to find hospital that can complete the MRI with sedation. 2100: I have spent at least 45 minutes speaking with the patient and her discussing the concern of binocular diplopia and concern for stroke. They are aware that we are unable to complete the work-up here at [facility]. Patient and her are exceedingly anxious but after extended amount of time in conversation have agreed to attempt to find transfer to an outlying hospital where she can get an MRI for further evaluation and management of the binocular diplopia. They are aware that despite findings there may be very little treatment or intervention that we can offer. 2129: After further time to think in the emergency department the patient is requesting to be discharged AGAINST MEDICAL ADVICE. She understands that we are not able to fully rule out a stroke as a cause of her binocular diplopia. She was advised to follow closely with her primary care doctor for referral to neurology. She was also advised that should her symptoms worsen in any way she was welcome to return to this emergency department immediately for further evaluation and management of her symptoms which could be due to a stroke Departure - Departure Disposition: 07 Against Medical Advice Clinical Impression: Binocular vision disorder with diplopia, Stroke-like symptoms, History of atrial fibrillation, Anticoagulated Condition: Serious Record reviewed to determine appropriate education?: Yes Comments: Gladys jennings are seen today in the emergency department because yesterday you develop double vision while driving. Your history is concerning for a stroke especially since you have a history of atrial fibrillation. The angiograms that we did today of your head and neck did not show a problem with blood flow through your brain. However an MRI is needed to confirm or rule out stroke as a cause of your symptoms. We attempted to do an MRI today but it was not tolerated. We did offer to transfer you to an outlying hospital to complete the work-up of a stroke which could include an MRI, possibly with sedation but after time to think and evaluate you have requested to be discharged home. Though this is AGAINST MEDICAL ADVICE, you are welcome to return to this emergency department now or at any time if you feel that your symptoms are worsening. You can continue to take your usual medication including the Eliquis. I do not recommend that you skip any doses. Please discuss this ED visit with your primary care doctor as soon as possible. You may benefit from outpatient referral to neurology for further evaluation of your symptoms
[2023-02-21] MEDS ORDERED: iohexoL-300 100 ML VIAL ONE (16:46)
[2023-02-21 17:09] LABS: THYROID STIMULATING HORMONE 1.6 uIU/mL (0.34-5.60)
[2023-02-21 17:11] LABS: FREE T4 (FREE THYROXINE) 0.87 ng/dL (0.58-1.64)
--- NOTE | 2023-02-21 18:17 | CT Report ---
PROCEDURE: ANGIO HEAD W/WO INDICATIONS: binocular diplopia CONTRAST: 80ml omni 300 TECHNIQUE: Precontrast 4.5 mm thick angled axial sections acquired from the foramen magnum to the vertex. Afte r the administration of intravenous contrast, 1 mm thick sections acquired through the [place] of [place] is. Postcontrast 4.5 mm thick sections then re-acquired from the foramen magnum to the vertex. 3-di mensional sjfgamr-xqayrxngn-iymewlhxeo (MIP) and/or volume rendering reformats were acquired of the c entral intracranial vasculature. For radiation dose reduction, the following was used: automated ex posure control, adjustment of mA and/or kV according to patient size. COMPARISON: CT head dated 02/20/2022 FINDINGS: Image quality: Diagnostic. BRAIN: CSF spaces: Ventricles are stable in size and shape. Basal cisterns are patent. No extra-axial fluid collections. Brain: No midline shift. No intracranial bleeds or masses. No suspicious enhancement. [place]-white matter interface appears intact. Skull and face: Calvarium and facial bones appear intact, without suspicious lesions. Orbits appear normal. Sinuses: Sinuses and mastoids are clear. HEAD CT ANGIOGRAPHY: Anterior circulation: Scattered atherosclerotic calcifications. Intracranial internal carotid arteries appear patent witho ut high-grade stenosis. There is flow/opacification within the paired anterior cerebral arteries. There is opacification within the middle cerebral arteries. The anterior communicating artery is seen. No aneurysms are seen. No occlusion. Posterior circulation: Visualized portions of the vertebral arteries are patent and join to form a no rmal appearing basilar artery. No evidence for high-grade stenosis. No occlusions. There is opacification of the posterior cerebral arteries. No aneurysms are seen. IMPRESSION: 1. CT head without acute intracranial abnormalities. No mass or mass effect. No acute intracranial he morrhage. No suspicious enhancement. 2. Negative CT angiogram of the intracranial arterial vasculature. Atherosclerosis. No hemodynamicall y significant stenosis identified. 3. Age-related senescent changes and sequela of chronic small vessel ischemic disease. Reviewed by: Johan Villatoro MD on 02/21/2023 5:15 PM STEVEN Approved by: Johan Villatoro MD on 02/21/2023 5:15 PM AKDT Station ID: [id number]
--- NOTE | 2023-02-21 18:20 | CT Report ---
PROCEDURE: ANGIO NECK W INDICATIONS: diplopia CONTRAST: 80ml omni 300 TECHNIQUE: After the administration of intravenous contrast, 1.5 mm axial sections acquired from the aortic arch to the [place] of [place]. Coronal 3-D maximum intensity projection (MIP) and/or volume rendering ref ormats were then performed. For radiation dose reduction, the following was used: automated exposur e control, adjustment of mA and/or kV according to patient size. COMPARISON: None. FINDINGS: Image quality: Diagnostic. Moderate motion artifact near the base of the neck. Carotid system: The left vertebral artery originates directly off the aortic arch. Otherwise, the gre at vessels demonstrate a conventional anatomy as they arise from the aortic arch. The origins of the common carotid arteries appear patent. The common carotid arteries demonstrate normal calibers and courses. The bifurcation regions appear normal bilaterally. The internal carotid arteries demonstra te normal caliber and course. Posterior circulation: The origins of the vertebral arteries appear patent. The more superior porti ons of the vertebral arteries demonstrate normal course and caliber. They join to form a normal appe aring basilar artery. Soft tissues: Visualized neck soft tissues demonstrate no suspicious abnormalities. The thyroid is normal in size and there are no incidental findings. Bones: No suspicious bony lesions. Visualized cervical spine appears normally aligned. Moderate mul tilevel cervical spondylosis. No acute compression fractures. Cranial cervical junction is intact. C1 -C2 relationship is maintained. IMPRESSION: Negative CT angiogram of the neck arterial vasculature hemodynamically significant stenosis. The estimate of stenosis included in the report of the imaging study was calculated using the NASCET method CLINICAL RECOMMENDATION STATEMENTS: In patients <35 years with an ITN detected on CT, MRI, or extrathyroidal ultrasound, the Committee re commends further evaluation with dedicated thyroid ultrasound if the nodule is "e1 cm and has no susp icious imaging features, and if the patient has normal life expectancy. In patients "e35 years with an ITN detected on CT, MRI, or extrathyroidal ultrasound, the Committee r ecommends further evaluation with dedicated thyroid ultrasound if the nodule is "e1.5 cm and has no s uspicious imaging features, and if the patient has normal life expectancy. (ACR, 2014) Reviewed by: Johan Villatoro MD on 02/21/2023 5:19 PM STEVEN Approved by: Johan Villatoro MD on 02/21/2023 5:19 PM [id number] Station ID: [id number]
[2023-02-21] MEDS: iohexoL-300 100 ML VIAL IVP ONE (18:39)
[2023-02-21 19:04] LABS: CHOLESTEROL 154 mg/dL; HDL CHOLESTEROL 78 mg/dL; LDL CHOLESTEROL,CALCULATED 60 mg/dL; LDL/HDL RATIO 0.8 (<4.4); TRIGLYCERIDES 79 mg/dL; VLDL CHOLESTEROL 16 mg/dL
[2023-02-21 19:44] VITALS: BP 154/97
[2023-02-21 20:43] LABS: ESTIMATED AVERAGE GLUCOSE 131 mg/dL (70-100); HEMOGLOBIN A1c% 6.2 % (4.27-6.07)
== END 2023-02-21 21:45 | disposition left against medical advice (07) ==
LOC: ED 14:08
DX: H53.2 Diplopia (principal); I48.91 Unspecified atrial fibrillation; Z79.01 Long term (current) use of anticoagulants; Z86.73 Personal history of transient ischemic attack (TIA), and cerebral infarction without residual deficits
CPT/HCPCS: 36415; 70496; 70498; 80053; 80061; 83036; 83690; 84439; 84443; 85025; 85610; 93005; 99284; Q9967; 83721

== ENCOUNTER 2023-05-28 08:00 | Outpatient (CLI) | payer MEDICARE, OTHER ==
--- NOTE | 2023-05-29 13:09 | XRAY Report ---
PROCEDURE: Chest 3 View X-Ray INDICATIONS: SEVERE FATIGUE/ABNORMAL EXAM TECHNIQUE: 2 views of the chest were acquired. COMPARISON: Right shoulder series dated 11/25/2018 FINDINGS: Surgical changes and devices: None. Lungs and pleura: Lungs are clear. There is hyperaeration and flattening of the hemidiaphragms. No f ocal consolidations. No pneumothorax or pleural effusion. Mediastinum: Mediastinal contours appear normal. Heart size is normal. Atherosclerosis of the aorti c arch. Bones and chest wall: No suspicious bony lesions. Overlying soft tissues appear unremarkable. IMPRESSION: Chest without acute cardiopulmonary abnormalities. 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 Reviewed by: Johan Villatoro MD on 05/29/2023 1:08 PM PDT Approved by: Johan Villatoro MD on 05/29/2023 1:08 PM PDT Station ID: [id number]
== END 2023-05-28 23:59 | disposition home or self-care (01) ==
LOC: DI.S 08:00
PROVIDERS: ATTEND Naturopath
DX: R53.83 Other fatigue (principal); R53.82 Chronic fatigue, unspecified

== ENCOUNTER 2023-06-03 12:57 | Outpatient (CLI) | payer MEDICARE, OTHER ==
--- NOTE | 2023-06-04 09:34 | Mammography Report ---
BILATERAL DIGITAL SCREENING MAMMOGRAM 3D/2D: 06/03/2023 CLINICAL: Routine screening. Comparison is made to exams dated: 10/06/2012 mammogram and 06/17/2011 mammogram - [facility]. Both breasts are heterogeneously dense, which may obscure small masses (category c / 51-75% glandular tissue). No significant masses, calcifications, or other findings are seen in either breast on the CC view onl y. MLO views were not acquired due to patient tolerance. IMPRESSION: INCOMPLETE: NEEDS ADDITIONAL IMAGING EVALUATION Bilateral CC views do not demonstrate any mammographic abnormalities. However, examination is incompl ete and MLO views are required. This exam was interpreted at Station ID: [id number]. NOTE: For mammograms, a report in lay terms will be sent to the patient. Approximately 15% of breast malignancies will not be visualized mammographically. In the management of a palpable breast mass, a negative mammogram must not discourage biopsy of a clinically suspicious lesion. Electronically Signed By: Negin Story M.D., PH.D eb/:06/04/2023 00:19:21 ACR BI-RADS Category 0: Incomplete 3340F PARENCHYMAL PATTERN: (D) - The breast(s) demonstrate(s) heterogeneously dense fibroglandular parenchy ma. BI-RADS CATEGORY: (0) - 0 RECOMMENDATION: (ADDMAM) - Recommend additional mammographic views. [id number] Immediate follow-up LATERALITY: (B)
== END 2023-06-03 12:58 | disposition home or self-care (01) ==
LOC: DI.S 12:57
DX: Z12.31 Encounter for screening mammogram for malignant neoplasm of breast (principal); R92.333 Mammographic heterogeneous density, bilateral breasts; R92.8 Other abnormal and inconclusive findings on diagnostic imaging of breast

== ENCOUNTER 2024-04-15 09:39 | Outpatient (CLI) | payer MEDICARE, OTHER ==
[2024-04-15 15:10] LABS: BASOPHILS % (AUTO) 0.6 %; EOSINOPHILS # (AUTO) 0.1 10^3/uL (0.0-0.7); EOSINOPHILS % (AUTO) 1.7 %; HCT - HEMATOCRIT 44.6 % (37.0-47.0); HGB - HEMOGLOBIN 14.7 g/dL (12.0-16.0); LYMPHOCYTES # (AUTO) 1.3 10^3/uL (1.5-3.5); LYMPHOCYTES % (AUTO) 25.3 %; MEAN CORPUSCULAR HEMOGLOBIN 30.4 pg (27.0-31.0); MEAN CORPUSCULAR VOLUME 92.1 fL (81.0-99.0); MEAN PLATELET VOLUME 12.1 fL (7.9-10.8); MONOCYTES # (AUTO) 0.9 10^3/uL (0.0-1.0); MONOCYTES % (AUTO) 16.8 %; NEUTROPHILS % (AUTO) 55.6 %; PLT - PLATELET COUNT 193 10^3/uL (130-450); RED BLOOD COUNT 4.84 10^6/uL (4.20-5.40); WHITE BLOOD COUNT 5.3 x10^3/uL (4.8-10.8)
[2024-04-15 16:25] LABS: FERRITIN 66.3 ng/mL (11.0-306.8)
[2024-04-15 16:51] LABS: % IRON SATURATION 24 % (20-50); ALBUMIN/GLOBULIN RATIO 1.3 (1.0-2.2); ALKALINE PHOSPHATASE 64 IU/L (42-121); ALT ALANINE AMINOTRANSFERASE 14 IU/L (10-60); AST ASPARTATE AMINOTRANSFERASE 16 IU/L (10-42); BILIRUBIN,TOTAL 0.7 mg/dL (0.2-1.0); BUN - BLOOD UREA NITROGEN 26 mg/dL (6-20); CALCIUM 9.3 mg/dL (8.5-10.3); CARBON DIOXIDE - CO2 26 mmol/L (21-32); CHLORIDE 106 mmol/L (101-111); CHOL/HDL RATIO 2.1 (<4.4); CHOLESTEROL 165 mg/dL; CREATININE 0.9 mg/dL (0.6-1.3); GFR - MDRD 59 (>89); GLUCOSE 138 mg/dL (74-104); HDL CHOLESTEROL 78 mg/dL; IRON 62 ug/dL (50-212); LDL CHOLESTEROL,CALCULATED 75 mg/dL; POTASSIUM 4.3 mmol/L (3.5-4.5); SODIUM 140 mmol/L (135-145); TOTAL IRON BINDING CAPACITY 262 ug/dL (250-450); TOTAL PROTEIN 7.1 g/dL (6.4-8.9); TRANSFERRIN 187 mg/dL (203-362); TRIGLYCERIDES 58 mg/dL; VLDL CHOLESTEROL 12 mg/dL
[2024-04-15 21:17] LABS: ESTIMATED AVERAGE GLUCOSE 131 mg/dL (70-100); HEMOGLOBIN A1c% 6.2 % (4.27-6.07)
== END 2024-04-15 09:40 | disposition home or self-care (01) ==
LOC: LAB.S 09:39
PROVIDERS: ATTEND Internal Medicine
DX: E11.9 Type 2 diabetes mellitus without complications (principal); R53.83 Other fatigue
CPT/HCPCS: 36415; 80053; 80061; 82728; 83036; 83540; 83721; 84466; 85025

== ENCOUNTER 2024-06-27 14:42 | Observation (INO) ==
[2024-06-27 16:14] LABS: BASOPHILS % (AUTO) 0.2 %; EOSINOPHILS % (AUTO) 0.8 %; HCT - HEMATOCRIT 37.4 % (37.0-47.0); HGB - HEMOGLOBIN 11.9 g/dL (12.0-16.0); LYMPHOCYTES # (AUTO) 1.8 10^3/uL (1.5-3.5); MEAN CORPUSCULAR HEMOGLOBIN 27.8 pg (27.0-31.0); MEAN CORPUSCULAR HGB CONC 31.8 g/dL (32.0-36.0); MEAN CORPUSCULAR VOLUME 87.4 fL (81.0-99.0); MEAN PLATELET VOLUME 9.7 fL (7.9-10.8); MONOCYTES # (AUTO) 0.8 10^3/uL (0.0-1.0); MONOCYTES % (AUTO) 17.4 %; NEUTROPHILS % (AUTO) 42.2 %; PLT - PLATELET COUNT 231 10^3/uL (130-450); RED BLOOD COUNT 4.28 10^6/uL (4.20-5.40); RED CELL DISTRIBUTION WIDTH 16.3 % (12.0-15.0); WHITE BLOOD COUNT 4.7 x10^3/uL (4.8-10.8)
[2024-06-27 16:26] LABS: BILIRUBIN,URINE NEGATIVE (NEGATIVE); GLUCOSE, URINE (UA) 100 mg/dL (NEGATIVE); KETONES,URINE (UA) NEGATIVE (NEGATIVE); LEUKOCYTE ESTERASE, URINE NEGATIVE (NEGATIVE); NITRITE,URINE NEGATIVE (NEGATIVE); OCCULT BLOOD,URINE NEGATIVE (NEGATIVE); PROTEIN,URINE NEGATIVE (NEGATIVE); UROBILINOGEN,URINE 0.2 (NORMAL) E.U./dL (NORMAL)
[2024-06-27 16:29] LABS: CLARITY,URINE CLEAR (CLEAR)
[2024-06-27 16:30] LABS: ALBUMIN 3.6 g/dL (3.2-5.5); ALBUMIN/GLOBULIN RATIO 1.2 (1.0-2.2); BILIRUBIN,TOTAL 0.5 mg/dL (0.2-1.0); CALCIUM 9.3 mg/dL (8.5-10.3); CREATININE 0.9 mg/dL (0.6-1.3); POTASSIUM 4.8 mmol/L (3.5-4.5); TOTAL PROTEIN 6.7 g/dL (6.4-8.9)
--- NOTE | 2024-06-27 18:20 | CT Report ---
PROCEDURE: CT Head WO INDICATIONS: HEADACHE TECHNIQUE: Noncontrast 4.5 mm thick angled axial sections acquired from the foramen magnum to the vertex. For r adiation dose reduction, the following was used: automated exposure control, adjustment of mA and/or kV according to patient size. COMPARISON: CT head 02/21/2023. FINDINGS: Image quality: Excellent. CSF spaces: Basal cisterns are patent. No extra-axial fluid collections. Ventricles are symmetric in size and shape. Brain: A small area of hypoattenuation is seen in the medial right occipital lobe. No mass effect. N o midline shift. No acute intracranial hemorrhage. Hypodensities in the subcortical and periventricu lar white matter are most commonly seen in setting of chronic microvascular ischemic changes. Age-rel ated cerebral and cerebellar volume loss is seen. Intracranial vascular calcifications are noted in t he internal carotid arteries. Skull and face: Calvarium and visualized facial bones are intact, without suspicious lesions. Sinuses: Visualized sinuses and mastoids are clear. IMPRESSION: Small area of hypoattenuation in the medial right occipital lobe is suspicious for a subacute infarct . No mass effect or intracranial hemorrhage. Consider MRI for further evaluation. Reviewed by: Bart Howell MD on 06/27/2024 6:18 PM [facility] Approved by: Bart Howell MD on 06/27/2024 6:18 PM PST Station ID: [id number]
[2024-06-27] MEDS ORDERED: SODIUM CHLORIDE FLUSH 0.9% 10 ML SYRINGE IVP PRN (19:18)
[2024-06-27] MEDS ORDERED: ONDANSETRON 4 MG/2 ML VIAL IVP PRN (19:18)
[2024-06-27] MEDS ORDERED: hydrALAZINE INJ 20 MG/ML VIAL IVP PRN (19:24)
[2024-06-27] MEDS: iohexoL-300 100 ML VIAL IVP ONE (19:40)
--- NOTE | 2024-06-27 19:58 | HISTORY & PHYSICAL EXAMINATION ---
Chief Complaint Chief Complaint Chief Complaint: headache History of Present Illness Admitted From Admitted From:: home via EMS History Obtained From Records Reviewed: Yes History obtained from: ED physician, family at bedside Exam Limitations: patient with dementia, telemedicine visit History of Present Illness HPI Comment/Other: Mrs. Campbell presented to the ED for evaluation of headache of acute onset. headache was generalized, worse on the left. pain was associated with numbness and tingling in her fingers bilaterally. There were no associated precipitating factors. symptoms were intermittent over the 3 days prior to presentation. Due to persistence of her headache and worsening numbness she came to the hospital for further evaluation. CT obtained by the ED physician demonstrated subacute stroke involving the right occipital lobe. I discussed the case with the ED provider and due to the worsening of her symptoms and the finding of a stroke, I agreed to admit for further evaluation. Plan of care to admit for further monitoring of the progression of her symptoms and evaluation with additional imaging was discussed with patient and family at bedside. They agreed to admission and the plan of care. This visit was performed utilizing tele-medicine tools, including phone and live-video. consent was obtained to proceed with this visit using the available tele-medicine modalities. 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) Aortic stenosis (09/19/10) Social History Social History Smoking Status: Never smoker Do you vape?: No Relationship: Do you feel safe in your home environment?: Yes Suffered physical, verbal, emotional, or financial abuse?: No History of Abuse: No POLST Patient has POLST: No Meds/Allgy Home Medications Ambulatory Orders Medication Instructions Recorded Confirmed lidocaine 5 % topical patch 1 patch topical DAILY PRN pain #10 06/05/21 02/02/23 patches modafinil 100 mg tablet 100 mg PO QAM #30 tabs 06/01/24 06/01/24 Allergies Allergies Allergy/AdvReac Type Severity Reaction Status Date / Time aspirin Allergy Severe throat pain Verified 06/27/24 14:45 Exam Exam physcial exam, as recorded, was obtained from patient reported information or obtained through peripheral observation. Constitutional normal general appearance and no apparent distress HENMT normocephalic Eyes PERRL and EOMs intact bilaterally Neck/C-Spine visual inspection normal Chest inspection of chest normal Respiratory breath sounds equal bilaterally Cardiovascular normal heart rate noted Extremities normal to palpation, no tenderness and full ROM Neurology outbound sales representative II-XII intact, no movement abnormality noted, no focal motor deficit noted and sensory deficit noted (tingling in the fingers bilaterally) Psychiatry cooperative, affect normal and memory abnormal Conclusion/Plan Problem List (1) Ischemic cerebrovascular accident (CVA): Plan: subacute CVA confirmed on CT head obtained in the ED. I discssed with ED physician and admitted for further monitoring and evaluation -patient is not a candidate for tPA or thrombolysis due to being outside of the window for such interventions -I will order MRI brain to further access extension of stroke,due to its subacute nature -I have ordered an ECHO with bubble study to evaluate cardiac structure and function -I have order lipid panel to evaluate for risk factor such as hyperlipidemia -I have reviewed home regimen, she is not currently on medications for lipids or bloodpressure - I will initiate atorvastatin 40mg daily for lipid management, I will order as needed hydralazine for management of blood pressure goal SBP less than 160, she is not a candidate for permissive hypertension -I have calculated NIHSS during my evaluation of 1. I will order scheduled neurochecks q6h for monitoring overnight. (2) Atrial fibrillation: Plan: I have reviewed chart, patient has history of paroxysmal atrial fibrillation. She was on anticoagulation with Eliquis. She is not taking eliquis at this time due to history of bleeding and head hematoma -I have order EKG and monitoring rhythm with telemetry as needed -I will monitor electrolytes, and replace as appropriate per protocol. Qualifiers: Atrial fibrillation type: paroxysmal Qualified Code(s): I48.0 - Paroxysmal atrial fibrillation (3) Sleep apnea: Plan: I have reviewed chart. patient is not on cpap at home. -I will monitor vitals with telemetry and pulse oximetry -I will order supplemental oxygen while sleeping as needed Qualifiers: Sleep apnea type: unspecified type Qualified Code(s): G47.30 - Sleep apnea, unspecified Lab Results Lab results reviewed: Yes 06/27/24 16:08 06/27/24 16:08 Diagnostic Imaging Results Diagnostic Imaging Results: positive Final report reviewed Core Measures Anticipated LOS I expect patient to be DC'd or transferred within 96 hours.: Yes DVT/VTE - Prophylaxis VTE/DVT Device ordered at admit?: Yes Stroke - Rehab Assessment Rehab services assessment to be ordered?: Yes AMI - Statin at Admit Aspirin Prescribed on Admit: No Not Ordered - Medical Reason: Hx of drug allergy Telemedicine Consult Details Provider Location & Consult Time Telemedicine consultation conducted via videoconferencing?: Yes
--- NOTE | 2024-06-27 20:51 | CT Report ---
PROCEDURE: CT Angio Head/Neck INDICATIONS: concern for ischemia TECHNIQUE: After the administration of intravenous contrast, 1 mm thick sections acquired from the aortic arch t hrough the [place]. 3-dimensional dkvmgxp-wkrcewoio-jmpqdfyrey (MIP) and/or volume renderin g reformats were acquired of the central intracranial vasculature and neck separately. For radiation dose reduction, the following was used: automated exposure control, adjustment of mA and/or kV acco rding to patient size. CONTRAST: 80ml [id number] COMPARISON: CT head 06/27/2024 and CTA head/neck 02/24/2023. FINDINGS: Image quality: Diagnostic. HEAD CT: CSF Spaces: Basal cisterns are patent. No extra-axial fluid collections. Ventricles are normal in size and shape. Brain: Small hypoattenuating area again seen in the right occipital lobe, better demonstrated on nonc ontrasted CT from earlier the same day. No acute intracranial hemorrhage. No significant mass effect or midline shift. Skull and face: Calvarium and visualized facial bones appear intact, without suspicious lesions. Sinuses: Visualized sinuses and mastoids are clear. HEAD CT ANGIOGRAPHY: Anterior circulation: Intracranial internal carotid arteries are normal in size and flow. The flow within the paired anterior cerebral arteries is normal and symmetric. The flow within the middle cer ebral arteries is normal and symmetric. The anterior communicating artery is seen. No aneurysms are seen. Posterior circulation: Visualized portions of the vertebral arteries demonstrate normal caliber, and join to form a normal appearing basilar artery. Flow within the posterior cerebral arteries is norm al and symmetric. No aneurysms are seen. NECK CT ANGIOGRAPHY: Carotid system: The great vessels demonstrate a conventional anatomy as they arise from the aortic a rch. The origins of the common carotid arteries appear patent. The common carotid arteries demonstr ate normal caliber and courses. The bifurcation regions are both widely patent. The internal caroti d arteries demonstrate normal calibers and courses. Posterior circulation: The origins of the vertebral arteries both appear widely patent. The more grace perior extracranial portions of both vertebral arteries also demonstrate normal courses and calibers. They join to form a normal appearing basilar artery. Soft tissues: Visualized neck soft tissues demonstrate no suspicious abnormalities. Bones: No suspicious bony lesions. Multilevel degenerative changes are seen in the included spine. P rominent degenerative changes at the sternoclavicular joints. IMPRESSION: No significant intracranial arterial abnormality is seen. No significant abnormality is seen within the arteries of the neck. Small area of hypoattenuation again seen in the right occipital lobe. No acute intracranial hemorrhag e. No mass effect or midline shift. Consider follow-up MRI for further evaluation when clinically fea sible. The estimate of stenosis included in the report of the imaging study was calculated using the NASCET method Reviewed by: Bart Howell MD on 06/27/2024 8:50 PM PST Approved by: Bart Howell MD on 06/27/2024 8:50 PM PST Station ID: [id number]
--- NOTE | 2024-06-27 21:05 | ED Physician Documentation ---
History of Present Illness Stated complaint Stated Complaint: HEADACHE X3 DAYS Chief complaint Chief Complaint: Neuro History obtained from History obtained from: Patient History of Present Illness Timing: Prior to arrival and Enter time Additonal information Additional information: Patient is an 88 yo female presenting to the ER wiht severe headache x 3 days. Symptoms have been persistent but patient is a poor historian. She notes it was her husbands idea for her to come to the ER. Patient notes occasional weakness or tingling in upper or lower extremities. She denies any vision changes at this time. Patient A & O x 1 on arrival. Meds/Allgy Home Medications Ambulatory Orders Medication Instructions Recorded Confirmed atorvastatin 40 mg tablet 40 mg PO DAILY #30 tabs 06/28/24 atorvastatin 40 mg tablet (Lipitor) 40 mg PO DAILY #30 tabs 06/28/24 clopidogrel 75 mg tablet 75 mg PO DAILY #30 tabs 06/28/24 Allergies Allergies Allergy/AdvReac Type Severity Reaction Status Date / Time aspirin Allergy Severe throat pain Verified 06/27/24 14:45 [facility] Medical History Medical History (Updated 06/29/24 @ 00:00 by ) History of bad fall ladder 03/2015, garden 02/2022 Multiple lung nodules c/o enlarged lymph glands. CT chest shows multiple nodules R and L 06/2021 Abdominal pain US of abd and CT abd x 2 done 03/2021. Has small kidney stone, absent GB/uterus, L oblique muscle of L spine inflamed Contusion of pelvis Right shoulder injury Dermatitis (05/23/15) Contusion of right buttock (04/13/15) Contusion of head (04/13/15) Chronic fatigue syndrome with fibromyalgia dx made with IgG 2018. insomnia, anxiety. 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) Abdominal pain, lower (01/29/21) Vaginitis, atrophic (04/11/16) 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) Aortic stenosis (09/19/10) Surgical History Surgical History (Updated 06/28/24 @ 07:36 by Sadaf Bush MD) Hx of hysterectomy Status post cholecystectomy Social History Social History Smoking Status: Never smoker Do you dip or chew tobacco?: No Do you vape?: No Relationship: Level: Independent Home Mobility Equipment: Walker Do you feel safe in your home environment?: Yes Suffered physical, verbal, emotional, or financial abuse?: No History of Abuse: No Substance Use: denies use POLST Patient has POLST: No Exam Constitutional Patient appears confused and having trouble expressing symptoms on arrival, A & O x 3 HENMT normocephalic and head/scalp atraumatic Eyes PERRL, EOMs intact bilaterally, conjunctivae normal and no nystagmus Neck/C-Spine visual inspection normal Lymph no lymphadenopathy noted Chest inspection of chest normal Respiratory breath sounds equal bilaterally, normal respiratory effort, clear to auscultation bilaterally, no wheezes and no rales Cardiovascular normal heart rate noted, regular rhythm noted and no gallop Gastrointestinal abdomen normal to inspection Back/Pelvis spine normal to inspection Skin skin color normal and no rash Results Vitals Vitals: Oxygen O2 Source Room air Labs Labs: Laboratory Tests 06/27/24 06/27/24 14:55 16:08 WBC 4.7 L RBC 4.28 Hgb 11.9 L Hct 37.4 MCV 87.4 MCH 27.8 MCHC 31.8 L RDW 16.3 H Plt Count 231 MPV 9.7 Neut # (Auto) 2.0 Lymph # (Auto) 1.8 Luna # (Auto) 0.8 Eos # (Auto) 0.0 Baso # (Auto) 0.0 Absolute Nucleated RBC 0.00 Nucleated RBC % 0.0 Sodium 140 Potassium 4.8 H Chloride 106 Carbon Dioxide 28 Anion Gap 6.0 BUN 21 H Creatinine 0.9 Estimated GFR (MDRD) 59 L Glucose 92 Calcium 9.3 Magnesium 2.0 Total Bilirubin 0.5 AST 17 ALT 18 Alkaline Phosphatase 53 Total Creatine Kinase 57 Total Protein 6.7 Albumin 3.6 Globulin 3.1 Albumin/Globulin Ratio 1.2 Urine Color YELLOW Urine Clarity CLEAR Urine pH 7.0 Ur Specific Varney 1.015 Urine Protein NEGATIVE Urine Glucose (UA) 100 H Urine Ketones NEGATIVE Urine Occult Blood NEGATIVE Urine Nitrite NEGATIVE Urine Bilirubin NEGATIVE Urine Urobilinogen 0.2 (NORMAL) Ur Leukocyte Esterase NEGATIVE Ur Microscopic Review NOT INDICATED Urine Culture Comments NOT INDICATED Rads (name of study) CT head without contrast: Relevant Findings:: EMP independent interpretation of test CTA head and neck: Relevant Findings:: Prelim report reviewed PD Medical Decision Making ED course Complexity details: reviewed old records and reviewed results ED course: Patient is an 88 yo female presenting to the ED with headache x 3 days. Symptoms have been worsening. She has a history of chronic pain but does not take anything for it. The headache is new and severe. She denies any falls or recent trauma. She has occasional tingling and reported TIA symptoms such as trouble finding words, but no other symptoms. NIHS of 1 on arrival. Vitals are stable physical exam is benign otherwise. Labs here in the ED are reassuring no signs of infection to explain patient's symptoms. EKG shows occasional PACs but no acute ischemia. CT head obtained given severe headaches shows: Small area of hypoattenuation in the medial right occipital lobe is suspicious for a subacute infarct. No mass effect or intracranial hemorrhage. Consider MRI for further evaluation. Patient was updated on findings. Aspirin was held as patient is allergic. She denies any symptoms now but was having some wavy movement in her vision earlier while here. Patient agreeable with CTA and will plan for admission for subacute stroke work up outside the window as symptoms of headache started 3 days ago. Patient admitted for stroke work up here by night hosptialist Dr Mckeon. Discharge Plan Discharge Patient Disposition: [facility] DC/Xfer Condition: Stable Clinical Impression: Ischemic cerebrovascular accident (CVA) Interventions: ED Admission Assessment Last Done: 06/27/24 21:32
[2024-06-27] MEDS: HEPARIN 5,000 UNIT/ML VIAL SUBQ SCH (21:22)
[2024-06-28] MEDS: ACETAMINOPHEN 325 MG TABLET PO PRN (00:34)
[2024-06-28] MEDS: SODIUM CHLORIDE FLUSH 0.9% 10 ML SYRINGE IVP SCH (00:34)
[2024-06-28 06:09] LABS: CHOL/HDL RATIO 3.1 (<4.4); CHOLESTEROL 152 mg/dL; HDL CHOLESTEROL 49 mg/dL; LDL CHOLESTEROL,CALCULATED 82 mg/dL; LDL/HDL RATIO 1.7 (<4.4); TRIGLYCERIDES 103 mg/dL; VLDL CHOLESTEROL 21 mg/dL
[2024-06-28] MEDS: ATORVASTATIN 40 MG TABLET PO SCH (09:13)
[2024-06-28] MEDS: CLOPIDOGREL 75 MG TABLET PO SCH (11:06)
--- NOTE | 2024-06-28 15:13 | PHARMACY PROGRESS NOTE ---
Best Possible Medication History Admit Date and Time: 06/27/241917 Home Medications Medication Instructions Recorded Confirmed Type No Known Home Medications 06/28/24 06/28/24 History Processed by: Pharmacy Medications reviewed in ED?: No Medication History completed: Yes Patient Interview: Pt unable to participate Secondary Source(s): Pharmacy records (No medications have been filled by patient in over 90 days per Odette Santos in [place]) and Insurance records [facility] Statement: As the person ultimately responsible for medication therapy, providers are able to order a medication from an existing home medication list in [facility] via the "Reconcile Routine" prior to Confirmation of that medication by computer support analyst. Such practice is discouraged except when the physician, in their clinical judgment, deems that a medical need exists for a medication without regard to previous use.
--- NOTE | 2024-06-28 16:07 | PT Plan of Care ---
PT Inpatient Plan of Care DIAGNOSIS Diagnosis: R occipital CVA Referring Provider: María Snow Patient Status: Observation CHIEF COMPLAINT Chief Complaint: STEPHENS, limited mobility Onset of Chief Complaint: HAIR BOILER MEDICAL/SURGICAL HISTORY Medical History (Updated 06/28/24 @ 07:44 by Sadaf Bush MD) History of bad fall ladder 03/2015, garden 02/2022 Multiple lung nodules c/o enlarged lymph glands. CT chest shows multiple nodules R and L 06/2021 Abdominal pain US of abd and CT abd x 2 done 03/2021. Has small kidney stone, absent GB/uterus, L oblique muscle of L spine inflamed Contusion of pelvis Right shoulder injury Dermatitis (05/23/15) Contusion of right buttock (04/13/15) Contusion of head (04/13/15) Chronic fatigue syndrome with fibromyalgia dx made with IgG 2018. insomnia, anxiety. 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 PMH includes dementia and aortic stenosis. Lives in multistory home with "Brant" who is present during eval and is pt's primary CG. Pt is set up for 1st level living and has a ramp to enter. Walk in shower with shower seat and GBs. Reportedly indep at baseline but does have a cane and walker "if needed." Upon PT eval, pt is hypertensive at rest, unable to check post activity vitals d/t pt reported discomfort and agitation. Pt transfers with CGA but requires mod to max cueing for safety and demonstrates low carryover of education. Amb in room with FWW and minAx1 approx 30'. Difficulty upon turning d/t minor LOB and difficulty managing walker. Overall mobility and coordination equivalent in BUE/BLE however slightly reduced RUE/RLE strength compared to L side. Pt may benefit from skilled PT in acute setting to improve walker mgmt and gait pattern. Will continue to assess rehab potential during acute stay. When medically clear, PT rec dc to SNF as pt is a high fall risk and below reported baseline. However, pt and pt's prefer dc home and are open to HH therapies. If pt dc's home she will need HHPT/OT/bathaide and 02/03 caregiver support. GOALS Improve supine to sit to:: Independent Improve sit to stand to:: Independent Improve sit to supine to:: Independent Improve gait ability to:: SBA Advance Assistive Device to:: Front Wheeled Walker Increase distance walked to (in feet):: 100 PLAN Frequency: 1-2x/day Duration: Until goals are met DISCHARGE RECOMMENDATIONS Discharge Location: SNF vs home Support/Services Needed: Home Health P.T. DC Equipment Recommended: Front wheeled walker Other Discharge Equipment: has FWW, may need shower chair Transport Needs at Discharge: Personal vehicle
--- NOTE | 2024-06-28 16:16 | Discharge Summary ---
"Discharge Summary Admit Date: 06/27/24 Discharge Date: 06/28/24 Discharging Provider: Sadaf Bush MD Primary Care Provider: Nadia Zimmerman MD Code Status: Attempt Resuscitation DIAGNOSES Discharge Diagnoses with Status of Each Condition: 1. Subacute stroke 2. Chronic atrial fibrillation 3. Noncompliance of medical regimen. Unable to take DOAC because of history of bleeding and head trauma 4. Obstructive sleep apnea 5. Claustrophobia and anxiety, unable to do MRI 6. 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 Patient was admitted less than 24 hours CONSULTS | PROCEDURES Procedures: 1. Head CT has a small area of hypoattenuation in the middle right occipital lobe suspicious for subacute infarct. No mass effect or intracranial hemorrhage. MRI recommended. However patient had claustrophobia and a panic attack and refused to do MRI even if given Ativan 2. Echocardiogram. Final report is pending at the time of discharge. Primary care provider will need to review. HOSPITAL COURSE Hospital Course: The patient was placed on telemetry. She has atrial fibrillation. That remained stable. She is unable to take a DOAC because of head trauma and bleeding. That history is nonspecific and I do not see any record in the EMR indicating that. But that is a decision she has made and her supports. She is placed on Plavix, and aspirin. But she says she is allergic to aspirin and that was discontinued. Atorvastatin was also started. Blood pressure is mildly elevated. She varied anywhere between 120-164 systolic. 52-90 diastolic. She is not on a blood pressure pill. She is now 3 to 5 days after stroke. We recommend that she be seen by her primary care provider and blood pressure be lowered by at least 20%. Physical therapy and Occupational Therapy did evaluate this patient. They do feel she needs / care. Memory loss is the main issue that leads to impulse, poor judgment. However says that he will take his home. She wants to go home. I will be ordering home health. ALLERGIES Allergies Allergy/AdvReac Type Severity Reaction Status Date / Time aspirin Allergy Severe throat pain Verified 06/27/24 14:45 MEDICATIONS Ambulatory Orders Medication Instructions Recorded Confirmed atorvastatin 40 mg tablet 40 mg PO DAILY #30 tabs 06/28/24 atorvastatin 40 mg tablet (Lipitor) 40 mg PO DAILY #30 tabs 06/28/24 clopidogrel 75 mg tablet 75 mg PO DAILY #30 tabs 06/28/24 PHYSICAL EXAM AT DISCHARGE General Appearance: positive No acute distress, Alert and Other (Thin elderly female, very pleasant, anxious, 5 foot tall, 46 kg. -19.8) Eyes Bilateral: positive PERRL and EOMI ENT: positive No signs of dehydration Neck: positive Thyroid nml and No JVD; negative Carotid bruit Respiratory: positive No respiratory distress, Breath sounds nml and Other (Rib cage visible. She appears to be slightly cachectic. 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 Extraocular movements intact.) and Disoriented to time; negative Motor nml (There is no focal weakness. However she has cerebellar ataxia with just going from sitting to standing.) LABS 06/27/24 16:08 06/27/24 16:08 TIME SPENT Time Spent in Discharge (Minutes): 30 Discharge Plan Discharge Patient Disposition: Home, Self Care Condition: Stable Medically Cleared Date:: 06/28/24 Prescriptions: New atorvastatin 40 mg Tablet 40 mg PO DAILY Qty: 30 0RF clopidogrel 75 mg Tablet 75 mg PO DAILY Qty: 30 0RF atorvastatin [Lipitor] 40 mg tablet 40 mg PO DAILY Qty: 30 2RF Diet: Regular Health Concerns: You came to the emergency room because of a headache for 3 days. And you had numbness and tingling in your fingers and hands. You have been to the emergency room many many times over the last few years because of numbness and tingling or dysesthesia of the face. You have had several CAT scans and they have all been negative. However, this time, you have had a stroke on the right side of your brain, in the middle. The technical name of the anatomic region is medial right occipital lobe. The rest of the workup for stroke is an ultrasound of the heart called an echocardiogram. You are able to do that. But the results are pending. We also do MRI of the head. However you had severe anxiety and could not complete the MRI and preferred that we do not do that. Since the stroke was 3 days ago, we feel you are stable to go home. Care Plan Goals: Your goal is to return to home under the care of your and family Assessment: Patient is confused, not oriented to date at times, and poor insight into his situation. is at the bedside and says that he will take care of her Plan of Treatment: 1. Please see your primary care provider in follow-up. Dr. Zimmerman will go over the CT report, and the final echocardiogram report. You have a history of atrial fibrillation. Atrial fibrillation will give you a stroke Because small clots from the heart. And those small clots were erratically and suddenly flow downstream out of the heart and into your brain. You are supposed to be on blood thinners for that but we are the under the impression that you have refused to take blood thinners in the past.It has given you easy bleeding and you have fallen and hit your head enough that the risk of bleeding in your brain from the blood thinners is higher than the risk of stroke from atrial fibrillation clot. 2. I am starting you on a blood thinner called Plavix. You are supposed to be on Plavix and aspirin but you state you are allergic to aspirin. It makes your throat hurt. So you will only be on Plavix. Make sure Dr. Zimmerman knows that have called in that prescription. I am also starting you on a cholesterol pill. A blood thinner, cholesterol pill, and blood pressure pill are the normal standards to treat stroke patients with. 3. A final thing that Dr. Zimmerman needs to evaluate you for your high blood pressure. Sometimes people develop high blood pressure, temporarily, because of stroke. That may be you. However, if you continue to have a high blood pressure in the next 1 to 2 weeks, Dr. Zimmerman needs to prescribe you a blood pressure pill 4. Physical therapy and Occupational Therapy did evaluate you. They strongly feel that you need 24/7 care. That is very difficult to do by 1 person. We are worried that your is taking on a burden that may be overwhelming but he keeps on saying that he can take care of you. You and your both say that your children will also help. Print Language: Stateless Patient Instructions: Stroke Prepare Home After, Stroke Dc, Stroke Caregiver Self Care, Atrial Fibrillation Stand Alone Forms: PCP List"
[2024-06-28 16:51] VITALS: O2SAT 96
== END 2024-06-28 17:07 | disposition home or self-care (01) ==
LOC: ED 14:42 → MS2 14:42
PROVIDERS: ADMIT Hospitalist; ATTEND Hospitalist
DX: F40.240 Claustrophobia; G11.9 Hereditary ataxia, unspecified; I48.20 Chronic atrial fibrillation, unspecified; F03.90 Unspecified dementia, unspecified severity, without behavioral disturbance, psychotic disturbance, mood disturbance, and anxiety; F41.0 Panic disorder [episodic paroxysmal anxiety]; Z91.128 Patient's intentional underdosing of medication regimen for other reason; Z88.6 Allergy status to analgesic agent; R41.0 Disorientation, unspecified; G47.33 Obstructive sleep apnea (adult) (pediatric); I63.9 Cerebral infarction, unspecified; I10 Essential (primary) hypertension